=== PATIENT | male | born 1940 | race Caucasian/White ===

== ENCOUNTER 2017-03-21 16:01 | Inpatient (IN) | payer MEDICARE ==
[~2017-03-21] VITALS: Ht 193 cm; Wt 131.1 kg
[2017-03-21] MEDS ORDERED: ASPIRIN 325 MG TABLET PO ONE (16:30)
[2017-03-21] MEDS ORDERED: NITROGLYCERIN OINT 1 GM PACKET TP ONE ×2 (16:30→16:38)
[2017-03-21] MEDS ORDERED: FUROSEMIDE 20 MG/2 ML VIAL IVP ONE (16:30)
[2017-03-21] MEDS ORDERED: FUROSEMIDE 20 MG/2 ML VIAL ONE (16:39)
[2017-03-21] MEDS ORDERED: ASPIRIN 325 MG TABLET ONE (16:39)
[2017-03-21 16:43] LABS: BASOPHILS # (AUTO) 0.1 K/uL (0.0-8.0); BASOPHILS % (AUTO) 0.9 % (0.0-2.0); EOSINOPHILS # (AUTO) 0.1 K/uL (0.0-0.7); EOSINOPHILS % (AUTO) 0.6 % (0.0-7.0); HEMATOCRIT 46.1 % (36.7-47.1); HEMOGLOBIN 14.7 g/dL (12.5-16.3); LYMPHOCYTES # (AUTO) 2.9 K/uL (20.0-40.0); LYMPHOCYTES % (AUTO) 22.9 % (20.5-51.5); MEAN CORPUSCULAR HGB CONC 32 g/dL (32.5-36.3); MEAN CORPUSCULAR VOLUME 84.9 fL (73.0-96.2); MONOCYTES # (AUTO) 0.7 K/uL (2.0-10.0); MONOCYTES % (AUTO) 5.3 % (0.0-11.0); NEUTROPHILS # (AUTO) 8.8 K/uL (1.8-8.9); NEUTROPHILS % (AUTO) 70.3 % (38.5-71.5); PLATELET COUNT (AUTO) 169 K/uL (152-348); RED BLOOD CELL COUNT(AUTO) 5.43 MIL/uL (4.06-5.63); RED CELL DISTRIBUTION WIDTH 14.4 % (12.1-16.2); WHITE BLOOD COUNT (AUTO) 12.6 K/uL (3.6-10.2)
[2017-03-21 16:48] LABS: CALCIUM 9.2 mg/dL (8.5-10.1); POTASSIUM 4.7 mmol/L (3.5-5.1)
[2017-03-21 16:55] LABS: CREATININE 2.5 mg/dL (0.6-1.3)
[2017-03-21 17:01] LABS: ALBUMIN 3.5 g/dL (3.4-5.0); BILIRUBIN,DIRECT 0.6 mg/dL (0.0-0.2); BILIRUBIN,TOTAL 2.5 mg/dL (0.2-1.0); TOTAL PROTEIN, SERUM 6.5 g/dL (6.4-8.2)
[2017-03-21] MEDS ORDERED: METO-306 PO (17:07)
[2017-03-21] MEDS ORDERED: ALPR0.5T8 PO (17:07)
[2017-03-21] MEDS ORDERED: METO2.5T2 PO (17:07)
[2017-03-21] MEDS ORDERED: SPIR25TA4 PO (17:07)
[2017-03-21] MEDS ORDERED: TEMA15CA PO (17:07)
[2017-03-21] MEDS ORDERED: HYDR-4076 PO (17:07)
[2017-03-21] MEDS ORDERED: ZOLP10TA2 PO (17:07)
[2017-03-21] MEDS ORDERED: AMLO10TA2 PO (17:07)
[2017-03-21] MEDS ORDERED: QUIN40TA27 PO (17:07)
[2017-03-21] MEDS ORDERED: LEVOFLOXACIN 750 MG/D5W 150 ML PIGGYBACK IV ONE (17:15)
[2017-03-21] MEDS ORDERED: LEVOFLOXACIN 750MG/D5W 150 ML IV ONE (17:22)
--- NOTE | 2017-03-21 17:25 | NUR ---
[place] noted at this time.
--- NOTE | 2017-03-21 17:41 | NUR ---
Dr Zheng in to see pt.
--- NOTE | 2017-03-21 18:30 | NUR ---
U/S in progress at bedside.
--- NOTE | 2017-03-21 18:42 | NUR ---
Pt trans to tele, NAD noted.
[2017-03-21 19:00] VITALS: BP 141/101
--- NOTE | 2017-03-21 19:30 | NUR ---
NSG: PT received a/o x 4, no acute distress noted. lungs sound diminished to auscultate. on 2L O2 via nc saturating at 94%. tele, SR with pac's. has bilateral lower extremity +3 edema, legs, ankles, feet. incontinent/continent of urine. bed alarm on. call light within reach.
[2017-03-21] MEDS ORDERED: BUMETANIDE INJ 4 MG in IV DEXTROSE 5% 24 ML IV ONE (20:30)
[2017-03-21] MEDS ORDERED: DEXTROSE 50% 50 ML DISP.SYRIN IV PRN (20:30)
[2017-03-21] MEDS: BLOOD SUGAR DIAGNOSTIC 1 EACH STRIP VI SCH (22:30)
[2017-03-21] MEDS: ZOLPIDEM 5 MG TABLET PO PRN (22:32)
[2017-03-21] MEDS: INSULIN REGULAR, HUMAN 300 UNIT/3 ML VIAL SQ PRN (22:34)
[2017-03-21] MEDS ORDERED: ZOLPIDEM 5 MG TABLET ONE (22:37)
[2017-03-21] MEDS ORDERED: Z GUARD REMEDY PASTE 57 GM TUBE TOP PRN (23:30)
--- NOTE | 2017-03-22 | NUR ---
NSG: CURRENTLY RECEIVING BUMEX DRIP. CONT TO MONITOR URINE OUTPUT. TELE, SR
[2017-03-22 00:24] VITALS: BP 129/96
[2017-03-22] MEDS: ALPRAZOLAM 0.5 MG TABLET PO PRN (03:13)
[2017-03-22] MEDS ORDERED: ALPRAZOLAM 0.5 MG TABLET ONE (03:22)
[2017-03-22 04:00] VITALS: BP 133/90
--- NOTE | 2017-03-22 05:18 | NUR ---
NSG: ALL NEEDS ATTENDED. NO ACUTE DISTRESS NOTED. V/S STABLE. CONT TO MONITOR.
[2017-03-22] MEDS: BLOOD SUGAR DIAGNOSTIC 1 EACH STRIP VI SCH ×4 (06:51→21:53)
[2017-03-22 06:52] LABS: BASOPHILS # (AUTO) 0.1 K/uL (0.0-8.0); BASOPHILS % (AUTO) 0.5 % (0.0-2.0); EOSINOPHILS # (AUTO) 0.1 K/uL (0.0-0.7); HEMATOCRIT 45.3 % (36.7-47.1); HEMOGLOBIN 14.6 g/dL (12.5-16.3); LYMPHOCYTES # (AUTO) 2.9 K/uL (20.0-40.0); LYMPHOCYTES % (AUTO) 23.1 % (20.5-51.5); MEAN CORPUSCULAR HEMOGLOBIN 27.8 uug (23.8-33.4); MEAN CORPUSCULAR HGB CONC 32 g/dL (32.5-36.3); MONOCYTES % (AUTO) 7.9 % (0.0-11.0); NEUTROPHILS # (AUTO) 8.4 K/uL (1.8-8.9); NEUTROPHILS % (AUTO) 67.5 % (38.5-71.5); PLATELET COUNT (AUTO) 149 K/uL (152-348); RED BLOOD CELL COUNT(AUTO) 5.27 MIL/uL (4.06-5.63); RED CELL DISTRIBUTION WIDTH 14.8 % (12.1-16.2); WHITE BLOOD COUNT (AUTO) 12.5 K/uL (3.6-10.2)
[2017-03-22 07:25] LABS: THYROID STIMULATING HORMONE 1.33 mIU/mL (0.358-3.740)
[2017-03-22] MEDS ORDERED: METOLAZONE 2.5 MG TABLET PO PRN (08:15)
[2017-03-22] MEDS ORDERED: ALPRAZOLAM 0.5 MG TABLET PO PRN (08:15)
[2017-03-22] MEDS ORDERED: ZOLPIDEM 5 MG TABLET PO PRN (08:15)
--- NOTE | 2017-03-22 08:30 | NUR ---
AWAKE ORTX4 COOPERATE WELL SLIGHTLY SOB EASILY CONTINUE O2 AT 3L/M O2 SAT WAS 95% KEEP HOB UP ,NO PAIN ONFALL/ASPIRATION PRECAUTION CALL SAUCEDO IN REACH
[2017-03-22 08:31] LABS: ALBUMIN 3.5 g/dL (3.4-5.0); BILIRUBIN,TOTAL 1.8 mg/dL (0.2-1.0); CALCIUM 8.6 mg/dL (8.5-10.1); POTASSIUM 4.7 mmol/L (3.5-5.1); TOTAL PROTEIN, SERUM 6.7 g/dL (6.4-8.2)
[2017-03-22 08:58] LABS: CREATININE 2.5 mg/dL (0.6-1.3)
[2017-03-22] MEDS: hydrALAZINE HCL 25 MG TABLET PO SCH ×2 (08:58→16:28)
[2017-03-22] MEDS: SPIRONOLACTONE 25 MG TABLET PO SCH (08:58)
[2017-03-22] MEDS: AMLODIPINE 10 MG TABLET PO SCH (08:58)
[2017-03-22] MEDS ORDERED: LEVOFLOXACIN 500 MG/D5W 500 MG in PREMIXED 1 EACH IV SCH (09:00)
[2017-03-22] MEDS ORDERED: MISCELLANEOUS MED XX SCH (09:00)
[2017-03-22] MEDS ORDERED: METOPROLOL SUCCINATE XL 100 MG TAB.SR.24H PO SCH (09:00)
[2017-03-22] MEDS ORDERED: METOPROLOL SUCCINATE XL 50 MG TAB.SR.24H PO SCH (09:00)
[2017-03-22] MEDS ORDERED: BUMETANIDE INJ 4 MG in IV DEXTROSE 5% 24 ML IV ONE (09:15)
--- NOTE | 2017-03-22 10:15 | NUR ---
US OF KIDNEY AT BEDSIDE ELOINA PROCEDURE WELL AND OOB UP AMB WITH PT AND UP IN CHAIR DOING WELL DR PHELPS SEE PATIENT AND LAB RESULT THIS AM NEW ORDER IN CHART
[2017-03-22 11:17] VITALS: BP 123/83
[2017-03-22] MEDS ORDERED: METOLAZONE 5 MG TABLET PO ONE (11:45)
[2017-03-22] MEDS: INSULIN REGULAR, HUMAN 300 UNIT/3 ML VIAL SQ PRN (11:59)
[2017-03-22] MEDS: FUROSEMIDE 40 MG/4 ML VIAL IV SCH ×2 (12:02→21:40)
[2017-03-22] MEDS: ASPIRIN 81 MG TAB.CHEW PO SCH (12:02)
--- NOTE | 2017-03-22 12:30 | NUR ---
UP IN CHAIR AND EAT LUNCH WELL REFUSED DVT PUMP BECAUSE OF SWELLING ON BLE KEEP UP ON PILLOW
[2017-03-22 14:28] LABS: *BILIRUBIN,URIN NEGATIVE (NEGATIVE); *BLOOD, URINE NEGATIVE (NEGATIVE); *CLARITY,URINE CLEAR (CLEAR); *COLOR,URINE YELLOW (YELLOW); *KETONES,URINE NEGATIVE (NEGATIVE); *PROTEIN,URINE TRACE (NEGATIVE); *UROBILINOGEN,URINE 0.2 E.U./dl (NORMAL); LEUKOCYTE ESTERASE ,URINE NEGATIVE (NEGATIVE); NITRITE, URINE NEGATIVE (NEGATIVE); UGLUCOSE NEGATIVE (NEGATIVE)
[2017-03-22 14:48] LABS: BACTERIA,URINE FEW /HPF (NONE SEEN); RBC,URINE 0-3 /HPF (0-3); SQUAMOUS EPITHELIAL CELL,UR NONE SEEN /HPF (NONE SEEN); WBC,URINE 0-3 /HPF (0-3)
[2017-03-22 15:02] LABS: *CREATININE,URINE 39.6 mg/dL (30-125); *URINE TOTAL PROTEIN RANDOM 21.1 mg/dL (<150/24HR)
[2017-03-22 15:22] VITALS: BP 125/75
--- NOTE | 2017-03-22 18:00 | NUR ---
CONDITION STABLE NO ACUTE DISTRESS CONTINUE O2 AT 3L /MIN AND KEEP HOB UP AT ALL TIME SAFETY MEASURE PROVIDED CALL SAUCEDO WITHIN REACH
[2017-03-22 19:00] VITALS: BP 120/75
--- NOTE | 2017-03-22 19:10 | NUR ---
Received report from LYNDSEY Flores
--- NOTE | 2017-03-22 19:50 | NUR ---
Received patient sound asleep during initial rounds. No s/s of respiratory distress noted. No s/s of pain/discomforts. Safety measure and fall precaution maintained. Bumex drip ordered just completed without s/s of adverse reaction noted. BUE/BLE still swollen. Elevated extremities with pillows to reduce edema. Continue care as planned.
[2017-03-22] MEDS: ATORVASTATIN 40 MG TABLET PO SCH (21:40)
[2017-03-22] MEDS: ZOLPIDEM 5 MG TABLET PO PRN (23:42)
[2017-03-22 23:57] VITALS: BP 110/71
[2017-03-23 04:00] VITALS: BP 109/75
--- NOTE | 2017-03-23 04:57 | NUR ---
SVT reported by MT. BP 109/75, asymptomatic. Continue to monitor.
[2017-03-23] MEDS: BLOOD SUGAR DIAGNOSTIC 1 EACH STRIP VI SCH ×4 (05:37→20:29)
--- NOTE | 2017-03-23 06:35 | NUR ---
Voided per diaper a lot. Good mariah care rendered. All needs attended and met. No complaint presented all night. Slept well. Safety measures and fall precaution maintained. Continue care as planned.
[2017-03-23 06:56] LABS: EOSINOPHILS # (AUTO) 0.3 K/uL (0.0-0.7); EOSINOPHILS % (AUTO) 2.5 % (0.0-7.0); HEMATOCRIT 44.8 % (40-50); LYMPHOCYTES # (AUTO) 2.8 K/uL (20.0-40.0); LYMPHOCYTES % (AUTO) 21.4 % (20.5-51.5); MEAN CORPUSCULAR HEMOGLOBIN 28.4 UUG (27.0-31.0); MEAN CORPUSCULAR HGB CONC 34 g/dL (32.0-37.0); MEAN CORPUSCULAR VOLUME 84.8 FL (82.0-92.0); MONOCYTES % (AUTO) 7.8 % (0.0-11.0); NEUTROPHILS # (AUTO) 9.2 K/uL (1.8-8.9); NEUTROPHILS % (AUTO) 68.3 % (38.5-71.5); PLATELET COUNT (AUTO) 160 K/UL (150-450); RED BLOOD CELL COUNT(AUTO) 5.27 MIL/UL (4.7-6.1); RED CELL DISTRIBUTION WIDTH 14.6 % (11.5-14.5); WHITE BLOOD COUNT (AUTO) 13.3 K/UL (4.0-11.2)
--- NOTE | 2017-03-23 06:56 | NUR ---
Report given to AM nurse.
[2017-03-23 07:05] LABS: ALBUMIN 3.5 g/dL (3.4-5.0); CALCIUM 8.9 mg/dL (8.5-10.1); CREATININE 2.5 mg/dL (0.6-1.3); MAGNESIUM 2.2 mg/dL (1.8-2.4); PHOSPHOROUS 6.4 mg/dL (2.5-4.9); POTASSIUM 3.5 mmol/L (3.5-5.1); TOTAL PROTEIN, SERUM 6.6 g/dL (6.4-8.2)
--- NOTE | 2017-03-23 08:00 | NUR ---
RECEIVED PATIENT FROM PRIOR SHIFT, PATIENT ALERT, AWAKE, ORIENTED , NO S/S OF DISTRESS, DENIED CHEST PAIN SINUS RHYTHM BBB, RESPIRATIONS EVEN AND UNLABORED. SAFETY MAINTAINED.
[2017-03-23] MEDS: SPIRONOLACTONE 25 MG TABLET PO SCH (08:42)
[2017-03-23] MEDS: ASPIRIN 81 MG TAB.CHEW PO SCH (08:43)
[2017-03-23] MEDS: AMLODIPINE 10 MG TABLET PO SCH (08:43)
[2017-03-23] MEDS: hydrALAZINE HCL 25 MG TABLET PO SCH ×2 (08:43→18:07)
[2017-03-23] MEDS ORDERED: BUMETANIDE INJ 8 MG in IV DEXTROSE 5% 48 ML IV ONE (08:45)
[2017-03-23] MEDS ORDERED: FUROSEMIDE 40 MG/4 ML VIAL IV SCH (09:00)
[2017-03-23 12:08] VITALS: BP 99/54
[2017-03-23] MEDS ORDERED: POTASSIUM CHLORIDE 20 MEQ POWDER PACKET PO ONE (12:15)
[2017-03-23] MEDS: METOPROLOL SUCCINATE XL 25 MG TAB.SR.24H PO SCH (12:30)
[2017-03-23 15:23] VITALS: BP 106/67
[2017-03-23 15:25] LABS: ABG BASE EXCESS 5.3 mmol/L; ABG HCO3 31.4 mmol/L; ABG PCO2 51.2 mmHg (35.0-45.0); ABG PH 7.406 (7.350-7.450); ABG PO2 97.3 mmHg (75.0-100.0); ABG SITE RIGHT RADIAL; ABG TOTAL HEMOGLOBIN 15.4 G/dL (13.5-18.0); COHb 1.6 % (0.5-1.5); MetHb 0.4 % (0.0-1.5); O2Hb 95.9 % (94.0-97.0); VENT MODE Nasal Cannula
--- NOTE | 2017-03-23 19:10 | NUR ---
Received report from LYNDSEY Kent
--- NOTE | 2017-03-23 19:17 | NUR ---
END OF SHIFT NOTE: PATIENT IN NO ACUTE DISTRESS THROUGHOUT SHIFT. VITAL SIGNS STABLE, CONTINUOUS SINUS RHYTHM ON TELE. PATIENT UP IN CHAIR TOLERATED. CONTINENT OF BLADDER. NEEDS MET BY STAFF.
--- NOTE | 2017-03-23 19:30 | NUR ---
Received in bed, awake, appears comfortable. Denies any pain or discomforts at this time. HOB elevated with contineous O2 at 3L saturating 95 % at this time. No s/s of respiratory distress. BLE elevated with pillow to reduce edema. Bumex drip contineous as ordered. Continue care as planned.
[2017-03-23 20:00] VITALS: BP 111/69
[2017-03-23] MEDS: ATORVASTATIN 40 MG TABLET PO SCH (20:26)
[2017-03-23] MEDS ORDERED: LEVOFLOXACIN 750MG/D5W 0 ML IV ONE (20:32)
[2017-03-23] MEDS ORDERED: LEVOFLOXACIN 750MG/D5W 750 MG in PREMIXED 1 EACH IV SCH (21:00)
[2017-03-23] MEDS: ZOLPIDEM 5 MG TABLET PO PRN (23:14)
--- NOTE | 2017-03-23 23:23 | NUR ---
Requested sleeping pills, given. Will monitor.
[2017-03-24] VITALS: BP 109/63
--- NOTE | 2017-03-24 00:05 | NUR ---
Sleeping soundly during rounds.
[2017-03-24] MEDS: ALPRAZOLAM 0.5 MG TABLET PO PRN (03:21)
[2017-03-24 04:00] VITALS: BP 121/78
--- NOTE | 2017-03-24 05:04 | NUR ---
VSS. Slept at long interval. No significant event reported all night. All needs attended and met. No complaint presented throughout the night. Continue care as planned.
[2017-03-24] MEDS: BLOOD SUGAR DIAGNOSTIC 1 EACH STRIP VI SCH ×2 (05:48→12:49)
--- NOTE | 2017-03-24 06:56 | NUR ---
Report given to LYNDSEY Mcqueen
[2017-03-24 07:05] LABS: ALBUMIN 3.4 g/dL (3.4-5.0); BILIRUBIN,TOTAL 2.2 mg/dL (0.2-1.0); CALCIUM 8.6 mg/dL (8.5-10.1); PHOSPHOROUS 5.9 mg/dL (2.5-4.9); POTASSIUM 3.1 mmol/L (3.5-5.1); TOTAL PROTEIN, SERUM 6.5 g/dL (6.4-8.2)
[2017-03-24 07:11] LABS: BASOPHILS % (AUTO) 0.1 % (0.0-2.0); EOSINOPHILS # (AUTO) 0.4 K/uL (0.0-0.7); EOSINOPHILS % (AUTO) 2.9 % (0.0-7.0); HEMATOCRIT 46.7 % (40-50); HEMOGLOBIN 15.4 G/DL (14.0-18.0); LYMPHOCYTES # (AUTO) 2.7 K/uL (20.0-40.0); LYMPHOCYTES % (AUTO) 22.2 % (20.5-51.5); MEAN CORPUSCULAR HGB CONC 33 g/dL (32.0-37.0); MEAN CORPUSCULAR VOLUME 84.7 FL (82.0-92.0); MONOCYTES # (AUTO) 1.1 K/uL (2.0-10.0); MONOCYTES % (AUTO) 8.7 % (0.0-11.0); NEUTROPHILS # (AUTO) 8.1 K/uL (1.8-8.9); NEUTROPHILS % (AUTO) 66.1 % (38.5-71.5); PLATELET COUNT (AUTO) 138 K/UL (150-450); RED BLOOD CELL COUNT(AUTO) 5.51 MIL/UL (4.7-6.1); RED CELL DISTRIBUTION WIDTH 14.4 % (11.5-14.5); WHITE BLOOD COUNT (AUTO) 12.3 K/UL (4.0-11.2)
[2017-03-24 07:36] LABS: CREATININE 2.5 mg/dL (0.6-1.3)
[2017-03-24] MEDS ORDERED: Isosorbide Dinitrate PO (07:54)
[2017-03-24] MEDS ORDERED: HYDR-894 PO (07:54)
[2017-03-24] MEDS ORDERED: ATOR40TA PO (07:54)
[2017-03-24] MEDS ORDERED: Metoprolol Succinate PO (07:54)
[2017-03-24] MEDS ORDERED: BUME1TAB13 PO (07:54)
[2017-03-24] MEDS ORDERED: ASPI81TA31 PO (07:54)
--- NOTE | 2017-03-24 08:00 | NUR ---
awake alert and oriented, denies of pain, on 3l/nc , denies of shortness of breath, tele SR 80's, explained plan of care- verbalized understanding, call lite within reach, safety measures maintained.
--- NOTE | 2017-03-24 08:30 | NUR ---
seen by Dr Zheng- to go home today
[2017-03-24] MEDS: ASPIRIN 81 MG TAB.CHEW PO SCH (08:41)
[2017-03-24] MEDS: METOPROLOL SUCCINATE XL 25 MG TAB.SR.24H PO SCH (08:42)
[2017-03-24] MEDS ORDERED: BUMETANIDE 1 MG TABLET PO SCH (09:00)
[2017-03-24] MEDS ORDERED: hydrALAZINE HCL 25 MG TABLET PO SCH (09:00)
--- NOTE | 2017-03-24 11:30 | NUR ---
seen by DR schaefer- on room air- sat at 93%- Dr Schaefer informed
[2017-03-24 11:55] LABS: A/G RATIO 1.5 (0.7-1.7); ALBUMIN 3.6 g/dL (2.9-4.4); ALPHA-1-GLOBULIN 0.2 g/dL (0.0-0.4); ALPHA-2-GLOBULIN 0.7 g/dL (0.4-1.0); BETA GLOBULIN 0.9 g/dL (0.7-1.3); GAMMA GLOBULIN 0.7 g/dL (0.4-1.8); GLOBULIN, TOTAL 2.4 g/dL (2.2-3.9); M-SPIKE Not Observed g/dL (Not Observed); PTH, INTACT 148 pg/mL (15-65)
--- NOTE | 2017-03-24 12:00 | NUR ---
denies of pain, voiding per urinal at times misses it, Both groin kept clean and dry- z guard applied.
[2017-03-24 12:04] VITALS: BP 115/73
[2017-03-24] MEDS ORDERED: PNEUMOCOCCAL 23-VAL P-SAC VAC 0.5 ML VIAL IM ONE (12:45)
[2017-03-24] MEDS ORDERED: ISOSORBIDE DINITRATE 10 MG TABLET PO SCH (14:00)
[2017-03-24] MEDS ORDERED: POTASSIUM CHLORIDE 10 MEQ CAPSULE.SA PO ONE (14:00)
[2017-03-24 14:25] VITALS: BP 115/69
--- NOTE | 2017-03-24 15:00 | NUR ---
discharge instructions given, pharmacist here for medications instructions- verbalized understanding, saline lock removed- no swelling/redness noted on site- states driving himself home
--- NOTE | 2017-03-24 15:30 | NUR ---
escorted to car per w/c in stable condition- all belongings with him
== END 2017-03-24 15:32 | disposition home or self-care (01) | DRG 177 ==
LOC: ER 16:13 → TELE 18:30
PROVIDERS: ADMIT Internal Medicine; ATTEND Internal Medicine
DX: J15.6 Pneumonia due to other Gram-negative bacteria (principal); I21.4 Non-ST elevation (NSTEMI) myocardial infarction; I50.43 Acute on chronic combined systolic (congestive) and diastolic (congestive) heart failure; N17.0 Acute kidney failure with tubular necrosis; J96.90 Respiratory failure, unspecified, unspecified whether with hypoxia or hypercapnia; I13.0 Hypertensive heart and chronic kidney disease with heart failure and stage 1 through stage 4 chronic kidney disease, or unspecified chronic kidney disease; J98.11 Atelectasis; E87.0 Hyperosmolality and hypernatremia; J90 Pleural effusion, not elsewhere classified; I47.1 Supraventricular tachycardia; I42.9 Cardiomyopathy, unspecified; N18.3 Chronic kidney disease, stage 3 (moderate); F41.9 Anxiety disorder, unspecified; F32.9 Major depressive disorder, single episode, unspecified; E11.22 Type 2 diabetes mellitus with diabetic chronic kidney disease; E66.9 Obesity, unspecified; N40.0 Benign prostatic hyperplasia without lower urinary tract symptoms; Z88.0 Allergy status to penicillin; G47.33 Obstructive sleep apnea (adult) (pediatric); F39 Unspecified mood [affective] disorder; F60.9 Personality disorder, unspecified
CPT/HCPCS: 36415; 36600; 70030-TC; 71010; 76770; 83735; 83970; 84100; 84155; 84156; 84165; 84300; 84443; 85025; 85730; 87040; 90732; 93005; 93307; 93880; 97001; 97003; 97110; 97116; 97530; J1815; J1940; J1956; J3490; J7040; J7060

== ENCOUNTER 2017-09-27 15:24 | Inpatient (IN) | payer MEDICARE ==
[~2017-09-27] VITALS: Ht 193 cm; Wt 123.0 kg
[~2017-09-27 15:24] MED LIST: ALPR0.5T8 PO; ASPI81TA31 PO; ATOR40TA PO; BUME1TAB13 PO; HYDR25TA86 PO; Isosorbide Dinitrate PO; METO2.5T2 PO; Metoprolol Succinate PO; ZOLP10TA2 PO
--- NOTE | 2017-09-27 15:35 | NUR ---
PATIENT IS AWAKE, ALERT, ORIENTED X4. DENIES PAIN OR ANY UUSUAL SYMPTOMS. PLACED ON MONITOR. HR 136. DENIES CHEST PAIN OR SOB. 12 LEAD EKG DONE.
--- NOTE | 2017-09-27 15:45 | NUR ---
PT'S FACILITY DID NOT SEND PT'S MEDICATION LIST. FACILITY WAS CALLED BY LYNDSEY MENDENHALL TO FAX PT'S MEDICATION LIST TO [facility] ([place]).
[2017-09-27 16:05] LABS: BASOPHILS # (AUTO) 0.1 K/uL (0.0-8.0); BASOPHILS % (AUTO) 0.6 % (0.0-2.0); EOSINOPHILS % (AUTO) 0.2 % (0.0-7.0); HEMATOCRIT 43.2 % (40-50); HEMOGLOBIN 14.1 G/DL (14.0-18.0); LYMPHOCYTES # (AUTO) 3.6 K/UL (0.8-4.8); LYMPHOCYTES % (AUTO) 16.2 % (20.5-51.5); MEAN CORPUSCULAR HEMOGLOBIN 27.4 UUG (27.0-31.0); MEAN CORPUSCULAR HGB CONC 33 g/dL (32.0-37.0); MEAN CORPUSCULAR VOLUME 84.1 FL (82.0-92.0); MONOCYTES # (AUTO) 0.9 K/UL (0.1-1.30); NEUTROPHILS # (AUTO) 17.6 K/UL (1.8-8.9); PLATELET COUNT (AUTO) 275 K/UL (150-450); RED BLOOD CELL COUNT(AUTO) 5.14 MIL/UL (4.7-6.1); WHITE BLOOD COUNT (AUTO) 22.2 K/UL (4.0-11.2)
[2017-09-27 16:07] LABS: CARBON DIOXIDE 21 mmol/L (21-32); CHLORIDE 101 mmol/L (98-107); CREATININE 2.2 mg/dL (0.6-1.3); GLUCOSE 160 mg/dL (74-106); POTASSIUM 3.8 mmol/L (3.5-5.1); UREA NITROGEN, BLOOD 78 mg/dL (7-18)
[2017-09-27 16:18] LABS: ALANINE AMINOTRANSFERASE 177 U/L (16-63); ALKALINE PHOSPHATASE 129 U/L (50-136); ASPARTATE AMINOTRANSFERASE 164 U/L (15-37); BILIRUBIN,DIRECT 0.4 mg/dL (0.0-0.2); BILIRUBIN,TOTAL 1.2 mg/dL (0.2-1.0); TOTAL PROTEIN, SERUM 7.4 g/dL (6.4-8.2)
[2017-09-27] MEDS ORDERED: TEMA30CA5 PO (16:21)
[2017-09-27] MEDS ORDERED: AMLO10TA2 PO (16:21)
[2017-09-27] MEDS ORDERED: CYAN10009 PO (16:21)
[2017-09-27] MEDS ORDERED: MULT1TAB11 PO (16:21)
[2017-09-27] MEDS ORDERED: RANI150T12 PO (16:21)
[2017-09-27] MEDS ORDERED: ISOS20TA8 PO (16:21)
[2017-09-27] MEDS ORDERED: ERGO500014 PO (16:21)
[2017-09-27] MEDS ORDERED: CLON0.1T PO (16:21)
[2017-09-27] MEDS ORDERED: HYDR-4076 PO (16:21)
[2017-09-27 16:25] LABS: BAND % (MANUAL) 3 % (0-10); LYMPHOCYTES % (MANUAL) 17 % (20-40); MONOCYTES % (MANUAL) 4 % (2-10); NEUTROPHILS % (MANUAL) 76 % (42-75)
--- NOTE | 2017-09-27 17:00 | NUR ---
REPORT GIVEN TO GABRIEL SOLORIO IN TELE DEPT
[2017-09-27 17:22] VITALS: BP 100/76
--- NOTE | 2017-09-27 17:39 | NUR ---
77 YEAR OLD MALE ADMITTED TO ROOM 215 FOR ARF AND CHF VIA GURNEY IN STABLE CONDITION.V/S ARE STABLE.ORIENT THE PT TO ROOM AND SURROUNDINGS.
--- NOTE | 2017-09-27 17:40 | NUR ---
CALLED FOR ADMISSION ORDERS.
[2017-09-27] MEDS ORDERED: ACETAMINOPHEN 325 MG TABLET PO PRN (18:00)
[2017-09-27] MEDS ORDERED: ONDANSETRON 4 MG/2 ML VIAL IV PRN (18:00)
[2017-09-27] MEDS ORDERED: CLONIDINE HCL 0.1 MG TABLET PO PRN (18:30)
[2017-09-27 20:00] VITALS: BP 144/81
[2017-09-27] MEDS: hydrALAZINE HCL 25 MG TABLET PO SCH (20:02)
--- NOTE | 2017-09-27 20:45 | NUR ---
RECEIVED PATIENT AWAKE IN BED, ALERT AND ORIENTED X3. ON NC 2L O2 SATS AT 97%. A. FIB ON TELE. VITAL SIGNS ARE STABLE. NOTED REDNESS ON SCARAL AND SCROTAL AREA. PHOTOS PLACED IN CHART. STARTED DVT PUMPS. INCONTINENT CARE RENDERED. CALL LIGHT WITHIN REACH.
[2017-09-27] MEDS: ISOSORBIDE DINITRATE 20 MG TABLET PO SCH (21:46)
[2017-09-28 00:15] VITALS: BP 120/69
[2017-09-28] MEDS: TEMAZEPAM 30 MG CAPSULE PO PRN (00:22)
--- NOTE | 2017-09-28 01:11 | NUR ---
PATIENT EXPERIENCE HICCUPS WHEN AWAKE. RECHECKED VS, STABLE. NO SOB AND NOT IN DISTRESS. GIVEN PRN SLEEPING PILLS PER PT'S REQUEST. OTHERWISE PATIENT IS SLEEPING AT THIS TIME.
[2017-09-28 04:00] VITALS: BP 115/81
[2017-09-28] MEDS: ISOSORBIDE DINITRATE 20 MG TABLET PO SCH ×3 (05:13→22:45)
--- NOTE | 2017-09-28 06:04 | NUR ---
SLEPT INTERMITTENTLY THRU THE NIGHT. INCONTINENT CARE DONE. CALL LIGHT WITHIN REACH.
[2017-09-28 06:40] LABS: BASOPHILS % (AUTO) 0.1 % (0.0-2.0); EOSINOPHILS # (AUTO) 0.1 K/uL (0.0-0.7); HEMOGLOBIN 12.4 g/dL (12.5-16.3); MONOCYTES # (AUTO) 1.9 K/uL (2.0-10.0); NEUTROPHILS # (AUTO) 16.1 K/uL (1.8-8.9)
[2017-09-28 07:05] LABS: EOSINOPHILS % (AUTO) 0.4 % (0.0-7.0); HEMATOCRIT 37.4 % (36.7-47.1); LYMPHOCYTES % (AUTO) 18.2 % (20.5-51.5); MEAN CORPUSCULAR HEMOGLOBIN 27.8 uug (23.8-33.4); MEAN CORPUSCULAR HGB CONC 33 g/dL (32.5-36.3); MEAN CORPUSCULAR VOLUME 83.3 fL (73.0-96.2); MONOCYTES % (AUTO) 8.6 % (0.0-11.0); NEUTROPHILS % (AUTO) 72.7 % (38.5-71.5); RED BLOOD CELL COUNT(AUTO) 4.48 MIL/uL (4.06-5.63); WHITE BLOOD COUNT (AUTO) 22.1 K/uL (3.6-10.2)
[2017-09-28 07:08] LABS: PLATELET COUNT (AUTO) 255 K/uL (152-348)
[2017-09-28 07:16] LABS: CARBON DIOXIDE 22 mmol/L (21-32); CHLORIDE 102 mmol/L (98-107); GLUCOSE 122 mg/dL (74-106); MAGNESIUM 2.5 mg/dL (1.8-2.4); PHOSPHOROUS 3.8 mg/dL (2.5-4.9); POTASSIUM 3.5 mmol/L (3.5-5.1); UREA NITROGEN, BLOOD 75 mg/dL (7-18)
--- NOTE | 2017-09-28 07:30 | NUR ---
RECEIVED PATIENT AWAKE IN BED, ALERT AND ORIENTED X3. ON NC 2L O2 SATS AT 97%. A. FIB ON TELE. VITAL SIGNS ARE STABLE. NOTED REDNESS ON Sacral AND SCROTAL AREA. . STARTED DVT PUMPS. INCONTINENT CARE RENDERED. CALL LIGHT WITHIN REACH.
[2017-09-28] MEDS: FAMOTIDINE 20 MG TABLET PO SCH (08:03)
[2017-09-28] MEDS: MULTIVIT, IRON, MIN NO. 8, FA TABLET PO SCH (08:03)
[2017-09-28] MEDS: CYANOCOBALAMIN 1,000 MCG TABLET PO SCH (08:03)
[2017-09-28] MEDS: Z GUARD REMEDY PASTE 57 GM TUBE TOP SCH ×2 (08:04→20:26)
[2017-09-28] MEDS: hydrALAZINE HCL 25 MG TABLET PO SCH ×2 (08:04→20:27)
[2017-09-28] MEDS ORDERED: AMLODIPINE 10 MG TABLET PO SCH (09:00)
[2017-09-28] MEDS ORDERED: HOME MED MISCELLANEOUS PO SCH (09:00)
[2017-09-28 09:54] LABS: BAND % (MANUAL) 4 % (0-10); LYMPHOCYTES % (MANUAL) 21 % (20-40); MONOCYTES % (MANUAL) 10 % (2-10); NEUTROPHILS % (MANUAL) 65 % (42-75)
[2017-09-28 11:03] VITALS: BP 113/63
[2017-09-28] MEDS: METOPROLOL SUCCINATE XL 50 MG TAB.SR.24H PO SCH ×2 (11:30→12:26)
[2017-09-28 11:45] LABS: BILIRUBIN,DIRECT 0.4 mg/dL (0.0-0.2); BILIRUBIN,TOTAL 1.2 mg/dL (0.2-1.0); TOTAL PROTEIN, SERUM 6.6 g/dL (6.4-8.2)
[2017-09-28] MEDS: BUMETANIDE 1 MG TABLET PO SCH (12:07)
[2017-09-28 14:40] LABS: *BILIRUBIN,URIN NEGATIVE (NEGATIVE); *BLOOD, URINE NEGATIVE (NEGATIVE); *COLOR,URINE YELLOW (YELLOW); *KETONES,URINE NEGATIVE (NEGATIVE); *PROTEIN,URINE TRACE (NEGATIVE); *UROBILINOGEN,URINE 0.2 E.U./dl (NORMAL); LEUKOCYTE ESTERASE ,URINE NEGATIVE (NEGATIVE); NITRITE, URINE NEGATIVE (NEGATIVE); PH,URINE 5.5 (5.0-8.0); UGLUCOSE NEGATIVE (NEGATIVE)
[2017-09-28 14:44] LABS: *CREATININE,URINE 68.4 mg/dL (30-125); *URINE TOTAL PROTEIN RANDOM 50.2 mg/dL (<150/24HR)
[2017-09-28 14:55] LABS: *CLARITY,URINE HAZY (CLEAR)
[2017-09-28 14:56] LABS: MUCUS,URINE MODERATE /LPF (0-FEW); SQUAMOUS EPITHELIAL CELL,UR FEW /HPF (NONE SEEN); URINE AMORPHOUS URATE MODERATE /HPF; WBC,URINE 0-3 /HPF (0-3)
[2017-09-28 15:24] VITALS: BP 111/74
[2017-09-28 20:00] VITALS: BP 90/68
[2017-09-28] MEDS ORDERED: LEVOFLOXACIN 500 MG/D5W 100 ML IV SCH (20:30)
--- NOTE | 2017-09-28 21:00 | NUR ---
PATIENT COMFORTABLE IN BED. ALERT AND ORIENTED X4. PATIENT CONSENT FOR NM HIDA GB VASC SCAN TOMORROW. VITAL SIGNS ARE STABLE. INCONTINENT CARE DONE. CALL LIGHT WITHIN REACH.
[2017-09-28] MEDS ORDERED: LEVOFLOXACIN 500 MG/D5W 100 ML ONE (21:51)
[2017-09-28] MEDS ORDERED: LEVOFLOXACIN 500 MG/D5W 500 MG in PREMIXED 1 EACH IV ONE (22:00)
[2017-09-28 22:41] VITALS: BP 109/64
[2017-09-28] MEDS: METRONIDAZOLE 500 MG/NS 100ML 500 MG in PREMIXED 1 EACH IV SCH (22:45)
[2017-09-29] VITALS: BP 124/74
--- NOTE | 2017-09-29 00:27 | NUR ---
INSTRUCTED NPO AFTER MIDNIGHT TONIGHT.
[2017-09-29 04:00] VITALS: BP 120/70
[2017-09-29] MEDS: ISOSORBIDE DINITRATE 20 MG TABLET PO SCH ×3 (05:28→22:06)
[2017-09-29] MEDS: METRONIDAZOLE 500 MG/NS 100ML 500 MG in PREMIXED 1 EACH IV SCH ×3 (05:28→21:43)
[2017-09-29 06:24] LABS: ALANINE AMINOTRANSFERASE 132 U/L (16-63); ALKALINE PHOSPHATASE 111 U/L (50-136); ASPARTATE AMINOTRANSFERASE 84 U/L (15-37); BILIRUBIN,DIRECT 0.4 mg/dL (0.0-0.2); BILIRUBIN,TOTAL 1.2 mg/dL (0.2-1.0); CARBON DIOXIDE 25 mmol/L (21-32); CHLORIDE 103 mmol/L (98-107); CREATINE KINASE, TOTAL 20 U/L (39-308); CREATININE 1.7 mg/dL (0.6-1.3); GLUCOSE 105 mg/dL (74-106); MAGNESIUM 2.2 mg/dL (1.8-2.4); PHOSPHOROUS 3.8 mg/dL (2.5-4.9); POTASSIUM 3.4 mmol/L (3.5-5.1); TOTAL PROTEIN, SERUM 6.6 g/dL (6.4-8.2); UREA NITROGEN, BLOOD 58 mg/dL (7-18)
--- NOTE | 2017-09-29 06:30 | NUR ---
MAINTAINED NPO. OTHERWISE NOT IN DISTRESS, VSS. INCONTINENT CARE DONE. CALL LIGHT WITHIN REACH.
[2017-09-29 06:48] LABS: BASOPHILS % (AUTO) 0.1 % (0.0-2.0); EOSINOPHILS # (AUTO) 0.1 K/uL (0.0-0.7); EOSINOPHILS % (AUTO) 0.5 % (0.0-7.0); HEMOGLOBIN 12.5 G/DL (14.0-18.0); LYMPHOCYTES # (AUTO) 3.2 K/UL (0.8-4.8); LYMPHOCYTES % (AUTO) 16.6 % (20.5-51.5); MEAN CORPUSCULAR HEMOGLOBIN 28.4 UUG (27.0-31.0); MEAN CORPUSCULAR HGB CONC 34 g/dL (32.0-37.0); MEAN CORPUSCULAR VOLUME 83.9 FL (82.0-92.0); MONOCYTES # (AUTO) 1.5 K/UL (0.1-1.30); MONOCYTES % (AUTO) 7.7 % (0.0-11.0); NEUTROPHILS # (AUTO) 14.2 K/UL (1.8-8.9); NEUTROPHILS % (AUTO) 75.1 % (38.5-71.5); PLATELET COUNT (AUTO) 275 K/UL (150-450); RED BLOOD CELL COUNT(AUTO) 4.41 MIL/UL (4.7-6.1)
--- NOTE | 2017-09-29 08:23 | NUR ---
to radiology dept for HIDA scan Addendum: 09/29/17 at 0823 by KEN IGLESIAS RN Amended: Links added.
--- NOTE | 2017-09-29 08:30 | NUR ---
seen by dr gallegos. no new orders received Addendum: 09/29/17 at 0946 by KEN IGLESIAS RN Amended: Links added.
[2017-09-29 10:29] LABS: BAND % (MANUAL) 2 % (0-10); EOSINOPHILS % (MANUAL) 1 % (0-8); LYMPHOCYTES % (MANUAL) 12 % (20-40); MONOCYTES % (MANUAL) 6 % (2-10); NEUTROPHILS % (MANUAL) 79 % (42-75)
[2017-09-29 10:47] VITALS: BP 137/64
--- NOTE | 2017-09-29 12:00 | NUR ---
seen by dr velasquez. orders received. informed of ef35% and need for TERRELL inhibitors and also anticoagulant. please see progress report. Addendum: 09/29/17 at 1559 by KEN IGLESIAS RN Amended: Links added.
[2017-09-29] MEDS: MULTIVIT, IRON, MIN NO. 8, FA TABLET PO SCH (12:23)
[2017-09-29] MEDS: BUMETANIDE 1 MG TABLET PO SCH (12:23)
[2017-09-29] MEDS: hydrALAZINE HCL 25 MG TABLET PO SCH ×2 (12:26→22:06)
[2017-09-29] MEDS: METOPROLOL SUCCINATE XL 50 MG TAB.SR.24H PO SCH (12:27)
[2017-09-29] MEDS: CYANOCOBALAMIN 1,000 MCG TABLET PO SCH (12:27)
[2017-09-29] MEDS: FAMOTIDINE 20 MG TABLET PO SCH (12:27)
[2017-09-29] MEDS: Z GUARD REMEDY PASTE 57 GM TUBE TOP SCH ×2 (12:30→22:00)
--- NOTE | 2017-09-29 12:32 | NUR ---
BACK TO RADIOLOGY DEPT to complete HIDA scan Addendum: 09/29/17 at 1232 by KEN IGLESIAS RN Amended: Links added.
--- NOTE | 2017-09-29 12:54 | NUR ---
back to room. Addendum: 09/29/17 at 1255 by KEN IGLESIAS RN Amended: Links added.
[2017-09-29] MEDS ORDERED: POTASSIUM CHLORIDE 10 MEQ CAPSULE.SA PO ONE (14:00)
--- NOTE | 2017-09-29 14:30 | NUR ---
kcl 20meq given for k3.4.. call to dr gallegos office re result of HIDA scan Addendum: 09/29/17 at 1431 by KEN IGLESIAS RN Amended: Links added.
[2017-09-29 15:13] VITALS: BP 127/55
--- NOTE | 2017-09-29 15:56 | NUR ---
seen by LANCE Sands. orders received. will start on clear liquids Addendum: 09/29/17 at 1556 by KEN IGLESIAS RN Amended: Links added. Addendum: 09/29/17 at 1559 by KEN IGLESIAS RN Amended: Links added.
[2017-09-29 20:00] VITALS: BP 127/57
--- NOTE | 2017-09-29 20:00 | NUR ---
NSG: PT RECEIVED A/O X 4, NO ACUTE DISTRESS NOTED. DENIES DISCOMFORT. ON 2L O2 VIA NC SATURATING AT 95%. LUNG SOUNDS DIMINISHED TO AUSCULTATE. TELE, SR. ON BED REST. CALL LIGHT WITHIN REACH. BED ALARM ON.
[2017-09-29] MEDS: LEVOFLOXACIN 250MG /D5W 250 MG in PREMIXED 1 EACH IV SCH (22:51)
[2017-09-29] MEDS: TEMAZEPAM 30 MG CAPSULE PO PRN (23:31)
[2017-09-30] VITALS: BP 95/58
[2017-09-30 04:00] VITALS: BP 140/74
[2017-09-30] MEDS: METRONIDAZOLE 500 MG/NS 100ML 500 MG in PREMIXED 1 EACH IV SCH ×3 (05:36→21:59)
[2017-09-30] MEDS: ISOSORBIDE DINITRATE 20 MG TABLET PO SCH ×3 (05:36→22:00)
--- NOTE | 2017-09-30 06:00 | NUR ---
NSG: ALL NEEDS ATTENDED. KEPT CLEAN AND DRY. REPOSITIONED.
--- NOTE | 2017-09-30 08:00 | NUR ---
awake and oriented, denies of abdominal pain, no n/v, tolerating clear liquids, on 2l/nc 02, no shortness of breath noted, tele afib/flutter 90's, explained plan of care- verbalized understanding, safety measures maintained- call light within reach
[2017-09-30] MEDS: FAMOTIDINE 20 MG TABLET PO SCH (08:26)
[2017-09-30] MEDS: CYANOCOBALAMIN 1,000 MCG TABLET PO SCH (08:26)
[2017-09-30] MEDS: MULTIVIT, IRON, MIN NO. 8, FA TABLET PO SCH (08:26)
[2017-09-30] MEDS: METOPROLOL SUCCINATE XL 50 MG TAB.SR.24H PO SCH (08:26)
[2017-09-30] MEDS: hydrALAZINE HCL 25 MG TABLET PO SCH ×2 (08:27→21:00)
[2017-09-30] MEDS: BUMETANIDE 1 MG TABLET PO SCH (08:28)
[2017-09-30] MEDS: Z GUARD REMEDY PASTE 57 GM TUBE TOP SCH ×2 (08:32→21:10)
[2017-09-30] MEDS ORDERED: ERGOCALCIFEROL 50,000 UNIT CAPSULE PO SCH (09:00)
[2017-09-30 10:07] LABS: HEPATITIS B SURFACE AB Non Reactive (.); HEPATITIS B SURFACE AG Negative (Negative)
--- NOTE | 2017-09-30 10:30 | NUR ---
seen by Dr Tejada
--- NOTE | 2017-09-30 11:00 | NUR ---
seen by Dr Storm- will have consult with Dr Lizzie Espinal MD contacted by Dr Storm
[2017-09-30 11:43] VITALS: BP 93/55
[2017-09-30 15:45] VITALS: BP 103/85
--- NOTE | 2017-09-30 18:32 | NUR ---
tolerating clear liquids, denies of abdominal pain, no n/v, all needs attended and met, repositioned q 2h with heels off loaded with pillows, no redness noted on heels, reddened areas on sacrum and scrotal areas applied with z guard, kept clean and dry at all times. call light within reach, tele afib/flutter in the 's
--- NOTE | 2017-09-30 20:00 | NUR ---
PATIENT AWAKE, ALERT,ORIENTED,DENIES ABDOMINAL ,BOWEL SOUND PRESENT, NO NAUSEA NOTED,TOLERATED LIQUID DIET WELL, HS SNACK GIVEN,PATIENT WAS SEEN FOR SURGICAL CONSULT, DOES NOT WANT FOR SURGICAL PROCEDURE OPTIONS.
[2017-09-30 20:38] VITALS: BP 110/68
[2017-09-30] MEDS: LEVOFLOXACIN 250MG /D5W 250 MG in PREMIXED 1 EACH IV SCH (21:11)
--- NOTE | 2017-10-01 00:05 | NUR ---
PATIENT SLEPT WELL AFTER SLEEPING PILL ADMIN PER PATIENT REQUESTED, AFIB,A FLUTTER WITH OCC PVC'S.
[2017-10-01 00:09] VITALS: BP 116/68
[2017-10-01 05:02] VITALS: BP 102/74
[2017-10-01] MEDS: ISOSORBIDE DINITRATE 20 MG TABLET PO SCH ×3 (06:00→22:00)
[2017-10-01] MEDS: METRONIDAZOLE 500 MG/NS 100ML 500 MG in PREMIXED 1 EACH IV SCH ×3 (06:40→21:00)
[2017-10-01 06:45] LABS: ALANINE AMINOTRANSFERASE 89 U/L (16-63); ALKALINE PHOSPHATASE 89 U/L (50-136); ASPARTATE AMINOTRANSFERASE 41 U/L (15-37); BILIRUBIN,TOTAL 0.6 mg/dL (0.2-1.0); CARBON DIOXIDE 25 mmol/L (21-32); CHLORIDE 104 mmol/L (98-107); CREATININE 1.5 mg/dL (0.6-1.3); GLUCOSE 102 mg/dL (74-106); MAGNESIUM 1.9 mg/dL (1.8-2.4); PHOSPHOROUS 4.1 mg/dL (2.5-4.9); POTASSIUM 3.4 mmol/L (3.5-5.1); TOTAL PROTEIN, SERUM 6.2 g/dL (6.4-8.2); UREA NITROGEN, BLOOD 43 mg/dL (7-18)
[2017-10-01 07:00] LABS: BASOPHILS % (AUTO) 0.2 % (0.0-2.0); HEMOGLOBIN 11.9 g/dL (12.5-16.3); LYMPHOCYTES # (AUTO) 3.4 K/uL (20.0-40.0)
[2017-10-01 07:15] LABS: EOSINOPHILS # (AUTO) 0.2 K/uL (0.0-0.7); EOSINOPHILS % (AUTO) 1.3 % (0.0-7.0); HEMATOCRIT 37.1 % (36.7-47.1); LYMPHOCYTES % (AUTO) 24.6 % (20.5-51.5); MEAN CORPUSCULAR HGB CONC 32 g/dL (32.5-36.3); MEAN CORPUSCULAR VOLUME 84.3 fL (73.0-96.2); MONOCYTES % (AUTO) 7.4 % (0.0-11.0); NEUTROPHILS # (AUTO) 9.3 K/uL (1.8-8.9); NEUTROPHILS % (AUTO) 66.5 % (38.5-71.5); PLATELET COUNT (AUTO) 318 K/uL (152-348)
--- NOTE | 2017-10-01 07:35 | NUR ---
D/C TELE, PATIENT DENIES PAIN/DISCOMFORT, NO N/V.
[2017-10-01] MEDS ORDERED: POTASSIUM CHLORIDE 20 MEQ TAB.PRT.SR PO ONE (08:30)
--- NOTE | 2017-10-01 08:30 | NUR ---
awake alert and oriented, denies of abdominal pain, no n/v, on 2l/nc 02, needs attended, call light within reach, BP meds not given due to low BP 100/72
--- NOTE | 2017-10-01 08:45 | NUR ---
seen by Dr Storm with orders- carried out
[2017-10-01] MEDS: BUMETANIDE 1 MG TABLET PO SCH (08:58)
[2017-10-01] MEDS: FAMOTIDINE 20 MG TABLET PO SCH (08:58)
[2017-10-01] MEDS: CYANOCOBALAMIN 1,000 MCG TABLET PO SCH (08:58)
[2017-10-01] MEDS: MULTIVIT, IRON, MIN NO. 8, FA TABLET PO SCH (08:58)
[2017-10-01] MEDS: hydrALAZINE HCL 25 MG TABLET PO SCH ×2 (08:59→21:00)
[2017-10-01] MEDS: METOPROLOL SUCCINATE XL 50 MG TAB.SR.24H PO SCH (09:00)
[2017-10-01] MEDS: TEMAZEPAM 30 MG CAPSULE PO PRN (09:00)
[2017-10-01] MEDS: APIXABAN 5 MG TABLET PO SCH ×2 (09:04→17:08)
[2017-10-01] MEDS: Z GUARD REMEDY PASTE 57 GM TUBE TOP SCH ×2 (09:06→21:12)
[2017-10-01 09:16] LABS: EOSINOPHILS % (MANUAL) 1 % (0-8); LYMPHOCYTES % (MANUAL) 18 % (20-40); METAMYELOCYTES % 3 % (0-1); MONOCYTES % (MANUAL) 9 % (2-10); NEUTROPHILS % (MANUAL) 69 % (42-75)
[2017-10-01 11:31] VITALS: BP 98/68
--- NOTE | 2017-10-01 14:00 | NUR ---
tolerated clear liquids, denies of abdominal pain
[2017-10-01 15:50] VITALS: BP 110/65
--- NOTE | 2017-10-01 17:59 | NUR ---
no distress noted, repositioned q 2h with heels off loaded with pillows at all times during shift, denies of abdominal pain, no n/v, all needs attended and met, call light within reach
--- NOTE | 2017-10-01 19:30 | NUR ---
RECEIVED SHIFT REPORT FROM PREVIOUS SHIFT NURSE. PATIENT IS AOX3, COOPERATIVE, APPEARS COMFORTABLE IN BED. PATIENT IS BED BOUND, FALL PRECAUTION IMPLEMENTED. PATIENT IS SAFE, BED/LOW POSITION, CALL LIGHT WITHIN REACH OF PATIENT. WILL ALSO MONITOR PATIENT'S BP THROUGHOUT SHIFT BECAUSE IT IS APPEARING TO BE ON THE LOWER END. SAFETY AND COMFORT WILL BE PROVIDED THROUGHOUT SHIFT.
[2017-10-01 20:13] VITALS: BP 98/70
--- NOTE | 2017-10-01 21:00 | NUR ---
APRESOLINE 25 MG HELD BECAUSE PATIENT'S BLOOD PRESSURE IS LOW: 103/68 AT 1999, PATIENT'S BP WAS 98/70. REVERSE TRENDELENBURG IMPLEMENTED AND INFORMED PATIENT TO DRINK WATER. BP WAS ABLE TO SLIGHTLY IMPROVED. WILL CONTINUE TO MONITOR.
[2017-10-01] MEDS ORDERED: LEVOFLOXACIN 500 MG/D5W 500 MG in PREMIXED 1 EACH IV SCH (22:00)
[2017-10-02] MEDS: TEMAZEPAM 30 MG CAPSULE PO PRN (00:18)
--- NOTE | 2017-10-02 00:20 | NUR ---
PATIENT REQUESTED FOR ANOTHER DOSE OF RESTORIL 30 MG PO BECAUSE HE VERBALIZES THAT HE IS HAVING A DIFFICULT TIME SLEEPING. RESTORIL 30 MG PO GIVEN TO PATIENT. PATIENT IN STABLE CONDITION, NO S/S OF DISTRESS. WILL CONTINUE TO MONITOR.
[2017-10-02 02:38] VITALS: BP 109/76
[2017-10-02] MEDS: METRONIDAZOLE 500 MG/NS 100ML 500 MG in PREMIXED 1 EACH IV SCH (05:20)
[2017-10-02] MEDS: ISOSORBIDE DINITRATE 20 MG TABLET PO SCH (06:00)
[2017-10-02 06:10] VITALS: BP 105/71
[2017-10-02 06:36] LABS: BASOPHILS # (AUTO) 0.1 K/uL (0.0-8.0); BASOPHILS % (AUTO) 0.9 % (0.0-2.0); EOSINOPHILS # (AUTO) 0.2 K/uL (0.0-0.7); EOSINOPHILS % (AUTO) 1.4 % (0.0-7.0); HEMATOCRIT 38.8 % (40-50); HEMOGLOBIN 12.5 G/DL (14.0-18.0); LYMPHOCYTES # (AUTO) 3.3 K/UL (0.8-4.8); LYMPHOCYTES % (AUTO) 25.5 % (20.5-51.5); MEAN CORPUSCULAR HEMOGLOBIN 27.4 UUG (27.0-31.0); MEAN CORPUSCULAR HGB CONC 32 g/dL (32.0-37.0); MEAN CORPUSCULAR VOLUME 85.2 FL (82.0-92.0); MONOCYTES # (AUTO) 0.8 K/UL (0.1-1.30); MONOCYTES % (AUTO) 6.5 % (0.0-11.0); NEUTROPHILS # (AUTO) 8.6 K/UL (1.8-8.9); NEUTROPHILS % (AUTO) 65.7 % (38.5-71.5); PLATELET COUNT (AUTO) 328 K/UL (150-450); RED BLOOD CELL COUNT(AUTO) 4.55 MIL/UL (4.7-6.1)
[2017-10-02 07:02] LABS: ALANINE AMINOTRANSFERASE 70 U/L (16-63); ALKALINE PHOSPHATASE 85 U/L (50-136); ASPARTATE AMINOTRANSFERASE 31 U/L (15-37); BILIRUBIN,TOTAL 0.5 mg/dL (0.2-1.0); CARBON DIOXIDE 28 mmol/L (21-32); CHLORIDE 106 mmol/L (98-107); CREATININE 1.5 mg/dL (0.6-1.3); GLUCOSE 107 mg/dL (74-106); PHOSPHOROUS 3.7 mg/dL (2.5-4.9); POTASSIUM 3.6 mmol/L (3.5-5.1); TOTAL PROTEIN, SERUM 6.2 g/dL (6.4-8.2); UREA NITROGEN, BLOOD 35 mg/dL (7-18)
--- NOTE | 2017-10-02 07:03 | NUR ---
PATIENT SLEPT INTERMITTENTLY THROUGH THE SYSTOLIC BLOOD PRESSURE RANGING IN THE 100s-110s. O2 SATURATION WNL THROUGHOUT SHIFT. PATIENT IN STABLE CONDITION, NO S/S OF DISTRESS. BP MEDICATION HELD DURING SHIFT BECAUSE OF PATIENT'S LOW BLOOD PRESSURE. BED ALARM ON, BED IN LOCKED/LOW POSITION WITH SIDE RAILS UP X2. CALL LIGHT WITHIN REACH.WILL CONTINUE TO MONITOR PATIENT, SAFETY/COMFORT WILL ALSO BE PROVIDED UNTIL END OF SHIFT.
--- NOTE | 2017-10-02 07:30 | NUR ---
PATIENT AWAKE, ALERT,ORIENTED,DENIES ABDOMINAL PAIN ,BOWEL SOUND PRESENT, NO NAUSEA NOTED,TOLERATED LIQUID DIET WELL, CALL LIGHT WITH IN REACH
[2017-10-02] MEDS: BUMETANIDE 1 MG TABLET PO SCH (08:09)
[2017-10-02] MEDS: FAMOTIDINE 20 MG TABLET PO SCH (08:09)
[2017-10-02] MEDS: APIXABAN 5 MG TABLET PO SCH (08:09)
[2017-10-02] MEDS: MULTIVIT, IRON, MIN NO. 8, FA TABLET PO SCH (08:09)
[2017-10-02] MEDS: CYANOCOBALAMIN 1,000 MCG TABLET PO SCH (08:09)
[2017-10-02 08:10] LABS: A/G RATIO 0.7 (0.7-1.7); ALBUMIN 2.3 g/dL (2.9-4.4); ALPHA-1-GLOBULIN 0.5 g/dL (0.0-0.4); ALPHA-2-GLOBULIN 1.1 g/dL (0.4-1.0); BETA GLOBULIN 0.6 g/dL (0.7-1.3); GAMMA GLOBULIN 0.9 g/dL (0.4-1.8); GLOBULIN, TOTAL 3.1 g/dL (2.2-3.9); M-SPIKE 0.3 g/dL (Not Observed)
[2017-10-02] MEDS: Z GUARD REMEDY PASTE 57 GM TUBE TOP SCH (08:24)
[2017-10-02 09:00] VITALS: BP 100/71
[2017-10-02] MEDS: METOPROLOL SUCCINATE XL 50 MG TAB.SR.24H PO SCH (09:00)
[2017-10-02] MEDS: hydrALAZINE HCL 25 MG TABLET PO SCH (09:00)
[2017-10-02] MEDS ORDERED: ACET325T53 PO (09:36)
[2017-10-02] MEDS ORDERED: MENT71OI TOP (09:36)
[2017-10-02] MEDS ORDERED: BUME1TAB13 PO (09:36)
[2017-10-02] MEDS ORDERED: CYAN10009 PO (09:36)
[2017-10-02] MEDS ORDERED: METO50TA7 PO (09:36)
[2017-10-02] MEDS ORDERED: APIX5TAB PO (09:36)
--- NOTE | 2017-10-02 10:57 | NUR ---
D/C ORDERS RECEIVED NOTED AND CARRIED OUT.D/C INSTRUCTIONS AND RN REPORT GIVEN OVER [facility].D/C HEPLOCK PER MD ORDERS.RN OVER [facility] WILL MAKE THE OPP..WITH THE YOUTH CARE SPECIALIST IN TWO WEEK.PT LEFT THE FACILITY VIA AMBULANCES IN STABLE CONDITION.
[2017-10-02] MEDS ORDERED: METRONIDAZOLE 500 MG TABLET PO SCH (14:00)
[2017-10-02] MEDS ORDERED: LEVOFLOXACIN 500 MG TABLET PO SCH (21:00)
== END 2017-10-02 11:02 | DRG 640 ==
LOC: ER 15:25 → TELE 17:02 → MED 10-01 06:55
PROVIDERS: ADMIT Internal Medicine; ATTEND Internal Medicine
DX: E66.01 Morbid (severe) obesity due to excess calories (principal); A41.9 Sepsis, unspecified organism; N17.0 Acute kidney failure with tubular necrosis; K81.0 Acute cholecystitis; E44.0 Moderate protein-calorie malnutrition; R53.2 Functional quadriplegia; E11.22 Type 2 diabetes mellitus with diabetic chronic kidney disease; I48.0 Paroxysmal atrial fibrillation; E88.09 Other disorders of plasma-protein metabolism, not elsewhere classified; I42.9 Cardiomyopathy, unspecified; I13.0 Hypertensive heart and chronic kidney disease with heart failure and stage 1 through stage 4 chronic kidney disease, or unspecified chronic kidney disease; I50.42 Chronic combined systolic (congestive) and diastolic (congestive) heart failure; G47.33 Obstructive sleep apnea (adult) (pediatric); Z68.33 Body mass index [BMI] 33.0-33.9, adult; N18.9 Chronic kidney disease, unspecified; D64.9 Anemia, unspecified; F32.9 Major depressive disorder, single episode, unspecified; N40.0 Benign prostatic hyperplasia without lower urinary tract symptoms; K76.9 Liver disease, unspecified; F41.9 Anxiety disorder, unspecified; I25.2 Old myocardial infarction; Z79.82 Long term (current) use of aspirin; Z53.20 Procedure and treatment not carried out because of patient's decision for unspecified reasons; Z79.899 Other long term (current) drug therapy; I70.0 Atherosclerosis of aorta; I25.10 Atherosclerotic heart disease of native coronary artery without angina pectoris
CPT/HCPCS: 36415; 70030-TC; 71010; 78445; 83605; 83735; 83970; 84100; 84155; 84156; 84165; 84300; 85025; 85730; 86706; 86803; 87040; 87086; 87340; 93005; 93307; A4663; A9537; C1758; J1956; J3490; J7050

== ENCOUNTER 2019-12-06 17:18 | Inpatient (IN) | payer MEDICARE ==
[~2019-12-06] VITALS: Ht 193 cm; Wt 146.1 kg
[~2019-12-06 17:18] MED LIST changes: +ACET325T53 PO; -ALPR0.5T8 PO; +APIX5TAB PO; -ASPI81TA31 PO; -ATOR40TA PO; -BUME1TAB13 PO; +BUME1TAB34 PO; +CLON0.1T PO; +CYAN-51 PO; +ERGO500014 PO; +HYDR-894 PO; -HYDR25TA86 PO; +ISOS20TA8 PO; -Isosorbide Dinitrate PO; +MENT71OI TOP; -METO2.5T2 PO; +METO50TA7 PO; +MULT1TAB11 PO; -Metoprolol Succinate PO; +RANI-655 PO; +TEMA30CA5 PO; -ZOLP10TA2 PO
[2019-12-06] MEDS ORDERED: CARV12.52 PO (17:31)
[2019-12-06] MEDS ORDERED: DOXY100T2 PO (17:31)
[2019-12-06] MEDS ORDERED: AMLO5TAB9 PO (17:31)
[2019-12-06] MEDS ORDERED: FOLIC ACID PO (17:31)
[2019-12-06] MEDS ORDERED: CITA20TA16 PO (17:31)
[2019-12-06] MEDS ORDERED: LEVOFLOXACIN 750MG/D5W 150 ML IV ONE ×2 (17:45→18:23)
[2019-12-06] MEDS ORDERED: VANCOMYCIN IV 1,000 MG in IV DEXTROSE 5% 250 ML IV ONE ×2 (17:45→23:00)
--- NOTE | 2019-12-06 18:00 | NUR ---
CLEANED THE PT. PT CAME SOAKED IN STOOL. BLE DRESSING SOILED. UNDRESSED AND REDRESSED.
[2019-12-06] MEDS ORDERED: VANCOMYCIN IV 200 ML ONE (18:24)
[2019-12-06 18:36] LABS: BASOPHILS % (AUTO) 0.2 % (0.0-2.0); EOSINOPHILS % (AUTO) 0.1 % (0.0-7.0); HEMATOCRIT 43.3 % (36.7-47.1); HEMOGLOBIN 13.6 g/dL (12.5-16.3); LYMPHOCYTES # (AUTO) 2.9 K/uL (20.0-40.0); LYMPHOCYTES % (AUTO) 16.1 % (20.5-51.5); MEAN CORPUSCULAR HEMOGLOBIN 26.8 uug (23.8-33.4); MEAN CORPUSCULAR HGB CONC 31 g/dL (32.5-36.3); MEAN CORPUSCULAR VOLUME 85.4 fL (73.0-96.2); MONOCYTES # (AUTO) 1.2 K/uL (2.0-10.0); MONOCYTES % (AUTO) 6.3 % (0.0-11.0); NEUTROPHILS # (AUTO) 14.1 K/uL (1.8-8.9); NEUTROPHILS % (AUTO) 77.3 % (38.5-71.5); PLATELET COUNT (AUTO) 174 K/uL (152-348); RED BLOOD CELL COUNT(AUTO) 5.07 MIL/uL (4.06-5.63); WHITE BLOOD COUNT (AUTO) 18.2 K/uL (3.6-10.2)
[2019-12-06 18:44] LABS: ALANINE AMINOTRANSFERASE 52 U/L (16-63); ALKALINE PHOSPHATASE 67 U/L (50-136); ASPARTATE AMINOTRANSFERASE 47 U/L (15-37); BILIRUBIN,DIRECT 0.4 mg/dL (0.0-0.2); CARBON DIOXIDE 17 mmol/L (21-32); CHLORIDE 108 mmol/L (98-107); GLUCOSE 97 mg/dL (74-106); TOTAL PROTEIN, SERUM 6.1 g/dL (6.4-8.2)
[2019-12-06 18:53] LABS: POTASSIUM 6.4 mmol/L (3.5-5.1); UREA NITROGEN, BLOOD 179 mg/dL (7-18)
[2019-12-06] MEDS ORDERED: SODIUM BICARBONATE 8.4% 50 MEQ/50 ML DISP.SYRIN IV ONE ×2 (19:00→19:12)
[2019-12-06] MEDS ORDERED: INSULIN REGULAR, HUMAN 300 UNIT/3 ML VIAL IV ONE (19:00)
[2019-12-06] MEDS ORDERED: DEXTROSE 50% 50 ML DISP.SYRIN IV ONE (19:00)
[2019-12-06] MEDS ORDERED: SODIUM POLYSTYRENE SULFONATE 15 G/60 ML LIQUID UDC PO ONE (19:00)
[2019-12-06] MEDS ORDERED: CALCIUM CHLORIDE 1 GM/10 ML DISP.SYRIN IVP ONE ×2 (19:00→19:13)
[2019-12-06] MEDS ORDERED: DEXTROSE 50% 50 ML DISP.SYRIN ONE (19:11)
[2019-12-06] MEDS ORDERED: INSULIN REGULAR, HUMAN 300 UNIT/3 ML VIAL ONE (19:12)
[2019-12-06] MEDS ORDERED: IV NORMAL SALINE 500 ML BAG IV ONE (19:15)
--- NOTE | 2019-12-06 19:31 | NUR ---
Dr Danielle speaking with DR Tian Cantrell from [facility] nephrology.
[2019-12-06] MEDS ORDERED: ALBUTEROL SULFATE 2.5 MG/3 ML NEBU NEB ONE (19:45)
[2019-12-06] MEDS ORDERED: ASPIRIN 81 MG TAB.CHEW PO ONE (19:45)
[2019-12-06] MEDS ORDERED: ALBUTEROL SULFATE 2.5 MG/3 ML NEBU ONE (19:54)
[2019-12-06] MEDS ORDERED: SODIUM POLYSTYRENE SULFONATE 15 G/60 ML LIQUID UDC ONE (19:57)
[2019-12-06] MEDS ORDERED: ASPIRIN 81 MG TAB.CHEW ONE (19:57)
--- NOTE | 2019-12-06 20:59 | NUR ---
Transfered to 3rd floor via gurny with no distress noted.
[2019-12-06] MEDS ORDERED: IV NS 1000 ML 1,000 ML IV ONE (21:45)
--- NOTE | 2019-12-06 21:50 | NUR ---
received patient from ER. temperature 93.4, bp 82/46, o2 97, HR 106 Dr. Bhatia contacted. orders received for bolus NS 1L. change admit from tele to TIEN. report given to night TIEN nurse.
[2019-12-06] MEDS ORDERED: ACETAMINOPHEN 325 MG TABLET PO PRN (22:15)
--- NOTE | 2019-12-06 22:30 | NUR ---
RECEIVED PATIENT FROM CHRISTY SOLORIO, PATIENT BP WAS LOW, AND TEMP LOW, WITH ORDER OF IV NS BOLUS AND BEAR HUGGER FOR LOW TEMP. PATIENT ALERT ORIENTED, NO COMPLAIN OF DISCOMFORT, NO PAIN, ASYMPTOMATIC, PATIENT HAS MULTIPLE WOUNDS/CELLULITIS ON RIGHT LEG, LEFT LEG, R TOES, L TOES, REDNESS AND OPEN WOUND ON RIGHT, LEFT, SACRUM , ALSO RIGHT AND LEFT GROIN RASHES, AND ABDOMINAL FOLDS RASHES, CONT TO MONITOR.
[2019-12-06 22:46] VITALS: BP 82/46
[2019-12-06] MEDS ORDERED: IV 1/2NS 1000 ML 1,000 ML IV PRN (23:45)
[2019-12-07] VITALS (7 sets, daily range): BP systolic 84–98; BP diastolic 39–59
--- NOTE | 2019-12-07 | NUR ---
PATIENT ALERT ORIENTED, NO SOB NO CHEST PAIN, TELE MONITOR SINUS RHYTHM, TEMP STILL LOW 94.2, ORAL, PATIENT HAS NO S/S OF DISTRESS, CONT TO MONITOR.
[2019-12-07] MEDS ORDERED: VANCOMYCIN IV 200 ML ONE (00:33)
[2019-12-07] MEDS ORDERED: SODIUM BICARBONATE 8.4% 50 MEQ/50 ML DISP.SYRIN IV ONE (00:34)
--- NOTE | 2019-12-07 04:28 | NUR ---
PATIENT ALERT ORIENTED, RECHECK TEMP 97.7. NO COMPLAIN OF PAIN.
[2019-12-07 04:40] LABS: *BILIRUBIN,URIN 1+ (NEGATIVE); *BLOOD, URINE 2+ (NEGATIVE); *COLOR,URINE YELLOW (YELLOW); *KETONES,URINE NEGATIVE (NEGATIVE); *UROBILINOGEN,URINE 0.2 E.U./dl (NORMAL); LEUKOCYTE ESTERASE ,URINE NEGATIVE (NEGATIVE); NITRITE, URINE NEGATIVE (NEGATIVE); UGLUCOSE NEGATIVE (NEGATIVE)
[2019-12-07 04:44] LABS: *CLARITY,URINE HAZY (CLEAR)
[2019-12-07 04:47] LABS: BACTERIA,URINE NONE SEEN /HPF (NONE SEEN); RBC,URINE 20-50 /HPF (0-3); SQUAMOUS EPITHELIAL CELL,UR FEW /HPF (NONE SEEN); URINE AMORPHOUS URATE MODERATE /HPF; WBC,URINE 0-3 /HPF (0-3)
[2019-12-07 05:04] LABS: *CREATININE,URINE 192.3 mg/dL (30-125)
[2019-12-07 05:18] LABS: *URINE TOTAL PROTEIN RANDOM 102.8 mg/dL (<150/24HR)
--- NOTE | 2019-12-07 07:30 | NUR ---
sleeping fair. monitored for respiratory distress
[2019-12-07] MEDS ORDERED: DOSING BY PHARMACY-MD TO SPECIFY MED/ROUTE XX PRN (08:30)
[2019-12-07 08:47] LABS: HEMATOCRIT 39.9 % (36.7-47.1); HEMOGLOBIN 12.6 g/dL (12.5-16.3); LYMPHOCYTES % (AUTO) 18.5 % (20.5-51.5); MEAN CORPUSCULAR HEMOGLOBIN 27.5 uug (23.8-33.4); MEAN CORPUSCULAR HGB CONC 32 g/dL (32.5-36.3); MEAN CORPUSCULAR VOLUME 86.8 fL (73.0-96.2); MONOCYTES # (AUTO) 1.6 K/uL (2.0-10.0); MONOCYTES % (AUTO) 9.6 % (0.0-11.0); NEUTROPHILS # (AUTO) 11.6 K/uL (1.8-8.9); NEUTROPHILS % (AUTO) 71.9 % (38.5-71.5); PLATELET COUNT (AUTO) 151 K/uL (152-348); RED BLOOD CELL COUNT(AUTO) 4.59 MIL/uL (4.06-5.63); WHITE BLOOD COUNT (AUTO) 16.2 K/uL (3.6-10.2)
[2019-12-07] MEDS ORDERED: LEVOFLOXACIN 750MG/D5W 750 MG in PREMIXED 1 EACH IV ONE (09:00)
[2019-12-07] MEDS ORDERED: DOXYCYCLINE HYCLATE 100 MG TABLET PO SCH (09:00)
[2019-12-07] MEDS ORDERED: AMLODIPINE 5 MG TABLET PO SCH (09:00)
[2019-12-07] MEDS ORDERED: ACETAMINOPHEN 325 MG TABLET PO PRN (09:00)
[2019-12-07] MEDS ORDERED: CARVEDILOL 12.5 MG TABLET PO SCH (09:00)
[2019-12-07 09:15] LABS: CARBON DIOXIDE 20 mmol/L (21-32); CHLORIDE 108 mmol/L (98-107); CREATININE 4.8 mg/dL (0.6-1.3); GLUCOSE 82 mg/dL (74-106); MAGNESIUM 2.4 mg/dL (1.8-2.4); POTASSIUM 5.4 mmol/L (3.5-5.1)
[2019-12-07] MEDS: FOLIC ACID 1 MG TABLET PO SCH (09:29)
[2019-12-07 09:42] LABS: PHOSPHOROUS 10.3 mg/dL (2.5-4.9); UREA NITROGEN, BLOOD 168 mg/dL (7-18)
[2019-12-07] MEDS ORDERED: APIX2.5T PO (10:58)
[2019-12-07] MEDS: APIXABAN 2.5 MG PO SCH ×2 (11:22→17:11)
--- NOTE | 2019-12-07 11:46 | NUR ---
dr mike in , saw patient. aware b/p 83/47 . made order and carried out. mild sob on exertion , relief when awake.
[2019-12-07] MEDS: CITALOPRAM 20 MG TABLET PO SCH (11:59)
--- NOTE | 2019-12-07 13:49 | NUR ---
Clinical pharmacy note-Vancomycin dosing per pharmacy Subjective: To start Vancomycin dosing on this patient for possible sepsis with BLE cellulitis(on doxycycline outpatient) Objective: BUN 179 Sc 5.0 WBC 16.2 Temp 98.6 Ht 193.04cm Wt 136.078kg(NH clarified with nurse) Assessment/Plan: Patient had Vancomycin 1gram in ED last night at 2039. Night pharmacist dosed additional 1gram(given today @0108) for total 2 grams. Since renal function is unstable(not on HD yet, will check daily for HD status), will start to dose by fall-off random level. Rx will order random tomorrow after checking am labs for renal function. Will follow daily.
--- NOTE | 2019-12-07 15:08 | NUR ---
lactic acid 1.0 , dr mike aware, no new order wound cultures both legs and mrsa nares obtained, sent to lab.
[2019-12-07] MEDS: Z GUARD REMEDY PASTE 57 GM TUBE TOP SCH (16:27)
[2019-12-07] MEDS: SODIUM BICARBONATE IV PRN (16:29)
[2019-12-07] MEDS: [UNRECOGNIZED DRUG - OTHER] IV PRN (16:29)
--- NOTE | 2019-12-07 18:51 | NUR ---
prn respiratory discomfort , relieve by rest. bp trending slowly higher. still poor appetite taling fluids liberally
[2019-12-07] MEDS ORDERED: METOCLOPRAMIDE HCL 10 MG/2 ML VIAL ONE (18:59)
[2019-12-07] MEDS ORDERED: MORPHINE SULFATE 4 MG/1 ML DISP.SYRIN ONE (18:59)
[2019-12-07] MEDS ORDERED: MORPHINE SULFATE 2 MG/1 ML DISP.SYRIN ONE (19:00)
[2019-12-08 01:07] VITALS: BP 107/68
[2019-12-08 05:51] VITALS: BP 104/65
[2019-12-08 06:47] LABS: BASOPHILS % (AUTO) 0.1 % (0.0-2.0); EOSINOPHILS % (AUTO) 0.1 % (0.0-7.0); HEMATOCRIT 39.3 % (36.7-47.1); HEMOGLOBIN 12.6 g/dL (12.5-16.3); LYMPHOCYTES % (AUTO) 19.8 % (20.5-51.5); MEAN CORPUSCULAR HEMOGLOBIN 26.9 uug (23.8-33.4); MEAN CORPUSCULAR HGB CONC 32 g/dL (32.5-36.3); MEAN CORPUSCULAR VOLUME 84.1 fL (73.0-96.2); MONOCYTES # (AUTO) 1.7 K/uL (2.0-10.0); NEUTROPHILS # (AUTO) 10.6 K/uL (1.8-8.9); PLATELET COUNT (AUTO) 135 K/uL (152-348); RED BLOOD CELL COUNT(AUTO) 4.67 MIL/uL (4.06-5.63); WHITE BLOOD COUNT (AUTO) 15.3 K/uL (3.6-10.2)
--- NOTE | 2019-12-08 06:53 | NUR ---
Pt rested well in between care; pt spoke to a friend Jostin Proctor) and gave permission to give information; dressing done to BLE this AM; c/o generalized pain and tylenol given; repositioned as needed; SOB on exertion; needs attended; Addendum: 12/08/19 at 0657 by BÁRBARA MCKEE RN pt normothermic and sbp 100s; continue to monitor; continue plan of care.
[2019-12-08 07:11] LABS: CARBON DIOXIDE 18 mmol/L (21-32); CHLORIDE 108 mmol/L (98-107); GLUCOSE 90 mg/dL (74-106); MAGNESIUM 2.5 mg/dL (1.8-2.4)
--- NOTE | 2019-12-08 07:15 | NUR ---
RECEIVED PATIENT SLEEPING IN BED. NO ACUTE DISTRESS NOTED. PATIENT OF 2L VIA NC. BED IN LOWEST POSITION, SIDE RAILS UP X2, CALL LIGHT WITHIN REACH. WILL CONTINUE TO MONITOR.
--- NOTE | 2019-12-08 07:30 | NUR ---
LAB REPORTED CRITICAL LAB FOR PHOSPHORUS AND BUN. NOTIFIED DR DE SANTIAGO NO NEW ORDERS GIVEN.
[2019-12-08 07:38] LABS: UREA NITROGEN, BLOOD 171 mg/dL (7-18)
[2019-12-08 08:00] VITALS: BP 113/60
[2019-12-08] MEDS: FOLIC ACID 1 MG TABLET PO SCH (08:37)
[2019-12-08] MEDS: CITALOPRAM 20 MG TABLET PO SCH (08:37)
[2019-12-08] MEDS: SEVELAMER CARBONATE 800 MG TABLET PO SCH ×3 (08:37→17:35)
[2019-12-08] MEDS: APIXABAN 2.5 MG PO SCH ×2 (08:38→17:37)
[2019-12-08] MEDS: [UNRECOGNIZED DRUG - OTHER] IV PRN (11:00)
[2019-12-08] MEDS: SODIUM BICARBONATE IV PRN (11:00)
[2019-12-08 11:45] VITALS: BP 97/57
--- NOTE | 2019-12-08 12:50 | NUR ---
Clinical pharmacy note-Vancomycin dosing per pharmacy Subjective: To start Vancomycin dosing on this patient for possible sepsis with BLE cellulitis(on doxycycline outpatient) Objective: BUN 171 Sc 5.0 (No HD patient yet- per RN) WBC 15.3 Temp 97.6 Vanco random level on 12/08 with am labs: 14.4 Ht 193.04cm Wt 136.078kg(NH clarified with nurse) Assessment/Plan: Since renal function is unstable(not on HD yet, will check daily for HD status), will continue to dose by fall-off random level. Since vanco random level is 14.4 mcg/ml, will give vanco 2gm IVPB x1 today at 1500. Rx will review renal function in am &decide when to order next random level for further dosing
[2019-12-08] MEDS ORDERED: VANCOMYCIN IV 2,000 MG in IV DEXTROSE 5% 500 ML IV ONE (15:00)
[2019-12-08 16:05] VITALS: BP 130/71
--- NOTE | 2019-12-08 18:21 | NUR ---
PATIENT RESTED THROUGHOUT DAY. PATIENT DENIED PAIN AND DISCOMFORT. NO ACUTE DISTRESS NOTED. PATIENT REPORTS SOB AT TIME OF EXCRETION. SAFETY MEASURES PROVIDED. WILL ENDORSE TO ONCOMING NURSE.
[2019-12-08 20:22] VITALS: BP 96/66
[2019-12-09] VITALS (7 sets, daily range): BP systolic 103–128; BP diastolic 63–84
[2019-12-09] MEDS: SODIUM BICARBONATE IV PRN ×2 (00:32→15:01)
[2019-12-09] MEDS: [UNRECOGNIZED DRUG - OTHER] IV PRN ×2 (00:32→15:01)
[2019-12-09 06:44] LABS: BASOPHILS % (AUTO) 0.1 % (0.0-2.0); EOSINOPHILS # (AUTO) 0.1 K/uL (0.0-0.7); EOSINOPHILS % (AUTO) 0.4 % (0.0-7.0); HEMATOCRIT 40.3 % (36.7-47.1); HEMOGLOBIN 12.6 g/dL (12.5-16.3); LYMPHOCYTES # (AUTO) 2.7 K/uL (20.0-40.0); LYMPHOCYTES % (AUTO) 19.1 % (20.5-51.5); MEAN CORPUSCULAR HEMOGLOBIN 26.8 uug (23.8-33.4); MEAN CORPUSCULAR HGB CONC 31 g/dL (32.5-36.3); MONOCYTES # (AUTO) 1.5 K/uL (2.0-10.0); MONOCYTES % (AUTO) 11.1 % (0.0-11.0); NEUTROPHILS # (AUTO) 9.7 K/uL (1.8-8.9); NEUTROPHILS % (AUTO) 69.3 % (38.5-71.5); PLATELET COUNT (AUTO) 106 K/uL (152-348); RED BLOOD CELL COUNT(AUTO) 4.68 MIL/uL (4.06-5.63)
[2019-12-09 06:52] LABS: CARBON DIOXIDE 24 mmol/L (21-32); CHLORIDE 109 mmol/L (98-107); CREATININE 4.6 mg/dL (0.6-1.3); GLUCOSE 87 mg/dL (74-106); MAGNESIUM 2.3 mg/dL (1.8-2.4); POTASSIUM 4.9 mmol/L (3.5-5.1)
--- NOTE | 2019-12-09 06:53 | NUR ---
Pt rested well in between care; needs attended; VSS; dressing done to BLE wounds;
[2019-12-09 07:53] LABS: UREA NITROGEN, BLOOD 160 mg/dL (7-18)
[2019-12-09 07:57] LABS: PHOSPHOROUS 8.2 mg/dL (2.5-4.9)
[2019-12-09] MEDS: SEVELAMER CARBONATE 800 MG TABLET PO SCH ×3 (08:48→17:37)
[2019-12-09] MEDS: CITALOPRAM 20 MG TABLET PO SCH (08:48)
[2019-12-09] MEDS: FOLIC ACID 1 MG TABLET PO SCH (08:50)
[2019-12-09] MEDS: APIXABAN 2.5 MG PO SCH ×2 (08:50→17:37)
[2019-12-09] MEDS ORDERED: LEVOFLOXACIN 500 MG/D5W 500 MG in PREMIXED 1 EACH IV SCH (09:00)
[2019-12-09] MEDS: CARVEDILOL 6.25 MG TABLET PO SCH ×2 (11:03→17:35)
--- NOTE | 2019-12-09 14:05 | NUR ---
WOUND CARE CONSULT: PT PRESENTS WITH RASHES TO ABDOMINAL/GROIN FOLDS, BUTTOCKS AND PERINEUM WITH INCONTINENCE ASSOCIATED SKIN DAMAGE, LARGE OPEN BLISTERS TO LOWER LEGS AND FEET, EDEMA AND DRY TOE WOUNDS, ALL PRESENT ON ADMISSION. RECOMMEND DPM CONSULT. DR VERNON NOTIFIED OF CONSULT REQUEST. RECOMMENDATIONS MADE FOR SKIN CARE AND PROTECTION WELL LOWER EXTREMITY WOUND CARE RECOMMENDATIONS TIL SEEN BY DPM. DISCUSSED WITH NURSING STAFF. WILL SEE CLAUDY CAZARES IN AGREEMENT WITH PLAN OF CARE. Addendum: 12/09/19 at 1407 by KIM WAGNER RN Amended: Links added.
--- NOTE | 2019-12-09 14:27 | NUR ---
Clinical pharmacy note-Vancomycin dosing per pharmacy Subjective: To continue Vancomycin dosing on this patient for possible sepsis with BLE cellulitis(on doxycycline outpatient) Objective: BUN 160 Sc 4.6 (No HD patient yet- per RN) WBC 14 Temp 98.3 Vanco random level on 12/08 with am labs: 14.4 Ht 193.04cm Wt 136.078kg(NH clarified with nurse) Assessment/Plan: Since renal function is unstable(not on HD yet, will check daily for HD status), will continue to dose by fall-off random level. Last vanco 2gm IVPB x1 given 12/08 1500. Per today's renal function, last random level, and timing of last dose, no dose for today. Next random ordered for tomorrow with am labs. Will check and redose as appropriate. Will follow
[2019-12-09] MEDS: CLOTRIMAZOLE 1% CREAM 30 GM TUBE TOP SCH (17:33)
[2019-12-09] MEDS: CEFTRIAXONE 1 G in IV DEXTROSE 5% 50 ML IV SCH (17:33)
--- NOTE | 2019-12-09 19:42 | NUR ---
Received patient lying in bed. AAOX4. In no apparent distress. On O2 at 2LPM via NC in place. O2 sat at 99%. VS WNL. A. Flutter on tele at 87/min. IV site on left FA intact and patent. IVF infusing. Delvalle catheter intact and draining via gravity. Dressing to both LE intact and clean. Delvalle catheter intact and draining via gravity. Safety measure initiated and call wheat within reached.
[2019-12-09] MEDS: ATORVASTATIN 40 MG TABLET PO SCH (20:01)
[2019-12-10] VITALS (7 sets, daily range): BP systolic 104–132; BP diastolic 64–82
[2019-12-10] MEDS: [UNRECOGNIZED DRUG - OTHER] IV PRN ×2 (04:29→15:38)
[2019-12-10] MEDS: SODIUM BICARBONATE IV PRN ×2 (04:29→15:38)
--- NOTE | 2019-12-10 06:14 | NUR ---
AAOX4. In no acute distress. O2 at 2LPM via NC in place. O2 sat at 96%. A. Flutter on tele with PVC and V pacing at 130/min. IV site on left FA intact and patent. IVF infusing. Delvalel catheter intact and draining via gravity. Dressing to both LE intact, dry and clean. Delvalle catheter intact and draining via gravity. Safety measure maintained and call wheat within reached.
[2019-12-10 06:44] LABS: BASOPHILS % (AUTO) 0.1 % (0.0-2.0); EOSINOPHILS # (AUTO) 0.1 K/uL (0.0-0.7); EOSINOPHILS % (AUTO) 0.7 % (0.0-7.0); HEMATOCRIT 39.5 % (36.7-47.1); HEMOGLOBIN 12.3 g/dL (12.5-16.3); LYMPHOCYTES # (AUTO) 2.4 K/uL (20.0-40.0); LYMPHOCYTES % (AUTO) 18.1 % (20.5-51.5); MEAN CORPUSCULAR HEMOGLOBIN 26.9 uug (23.8-33.4); MEAN CORPUSCULAR HGB CONC 31 g/dL (32.5-36.3); MEAN CORPUSCULAR VOLUME 86.6 fL (73.0-96.2); MONOCYTES # (AUTO) 1.3 K/uL (2.0-10.0); MONOCYTES % (AUTO) 10.1 % (0.0-11.0); NEUTROPHILS # (AUTO) 9.4 K/uL (1.8-8.9); PLATELET COUNT (AUTO) 100 K/uL (152-348); RED BLOOD CELL COUNT(AUTO) 4.56 MIL/uL (4.06-5.63); WHITE BLOOD COUNT (AUTO) 13.2 K/uL (3.6-10.2)
[2019-12-10 06:57] LABS: CARBON DIOXIDE 27 mmol/L (21-32); CHLORIDE 112 mmol/L (98-107); CREATININE 3.6 mg/dL (0.6-1.3); GLUCOSE 92 mg/dL (74-106); MAGNESIUM 2.1 mg/dL (1.8-2.4); PHOSPHOROUS 6.7 mg/dL (2.5-4.9); VANCOMYCIN,RANDOM 20.2 ug/mL (18.0-26.0)
[2019-12-10 06:59] LABS: UREA NITROGEN, BLOOD 134 mg/dL (7-18)
--- NOTE | 2019-12-10 08:00 | NUR ---
AWAKE ALERT AND ORIENTED X3 NO SS OF PAIN OR DISTRESS WITH 4L O2 VIA NC SATURATING 97%. CONTINUE TIEN STATUS ORDERED
[2019-12-10] MEDS: CITALOPRAM 20 MG TABLET PO SCH (08:20)
[2019-12-10] MEDS: FOLIC ACID 1 MG TABLET PO SCH (08:20)
[2019-12-10] MEDS: CARVEDILOL 6.25 MG TABLET PO SCH ×2 (08:20→16:50)
[2019-12-10] MEDS: SEVELAMER CARBONATE 800 MG TABLET PO SCH ×3 (08:20→16:48)
[2019-12-10] MEDS: Z GUARD REMEDY PASTE 57 GM TUBE TOP SCH (08:23)
[2019-12-10] MEDS: APIXABAN 2.5 MG PO SCH (08:24)
[2019-12-10] MEDS: CLOTRIMAZOLE 1% CREAM 30 GM TUBE TOP SCH ×2 (08:25→16:50)
[2019-12-10] MEDS ORDERED: SILVER SULFADIAZINE 1% CREAM 50 GM TP SCH (09:00)
--- NOTE | 2019-12-10 11:56 | NUR ---
CONTINUE WITH TX PLAN ORDERED
--- NOTE | 2019-12-10 12:25 | NUR ---
Clinical pharmacy note-Vancomycin dosing per pharmacy Subjective: To continue Vancomycin dosing on this patient for possible sepsis with BLE cellulitis(on doxycycline outpatient) Objective: BUN 134 Sc 3.6(No HD patient yet- per RN) WBC 13.2 Temp 97.8 Vanco random level on 12/08 with am labs: 14.4 Vanco random level on 12/10 with am labs: 20.2 Ht 193.04cm Wt 136.078kg(NH clarified with nurse) Assessment/Plan: Since renal function is unstable(not on HD yet, will check daily for HD status), will continue to dose by fall-off random level. Since vanco random level wuith am labs is 20.2, will give vanco 2 gm IVPB x1 today at 1800. Pharmacy alejandro review the level in am & decide when to order next random for re-dosing. Will follow
[2019-12-10] MEDS: APIXABAN 5 MG TABLET PO SCH (16:49)
[2019-12-10] MEDS: CEFTRIAXONE 1 G in IV DEXTROSE 5% 50 ML IV SCH (16:50)
[2019-12-10] MEDS ORDERED: CARVEDILOL 6.25 MG TABLET PO ONE (17:45)
[2019-12-10] MEDS ORDERED: AMIODARONE HCL IV 900 MG in IV DEXTROSE 5% 482 ML IV PRN (18:00)
[2019-12-10] MEDS ORDERED: AMIODARONE HCL IV 150 MG in IV DEXTROSE 5% 100 ML IV ONE (18:00)
[2019-12-10] MEDS ORDERED: CARVEDILOL 6.25 MG TABLET PO SCH (18:00)
[2019-12-10] MEDS ORDERED: VANCOMYCIN IV 2,000 MG in IV DEXTROSE 5% 500 ML IV ONE (18:00)
[2019-12-10] MEDS: CARVEDILOL 12.5 MG TABLET PO SCH (18:00)
--- NOTE | 2019-12-10 18:20 | NUR ---
per dr charles COREG 12.5 BID TO START IN AM
--- NOTE | 2019-12-10 18:38 | NUR ---
SEEN BY DR SORIANO PATIENT STATUS CHANGED BACK TO TIEN FOR AMIODARONE KRYSTIAN
[2019-12-10] MEDS: ATORVASTATIN 40 MG TABLET PO SCH (20:35)
[2019-12-11 00:30] VITALS: BP 118/58
[2019-12-11] MEDS: [UNRECOGNIZED DRUG - OTHER] IV PRN (06:31)
[2019-12-11] MEDS: SODIUM BICARBONATE IV PRN (06:31)
--- NOTE | 2019-12-11 07:32 | NUR ---
Pt rested well in between care; assisted to meet hygiene needs; dressing done to BLE; assisted with PO intake;on going amio drip; continue to monitor; continue plan of care.
--- NOTE | 2019-12-11 08:00 | NUR ---
AWAKE ALERT AND ORIENTED X3 NO SS OF ACUTE PAIN OR DISTRESS. WILL CONTINUE PLAN OF CARE WITH IV ANTIBIOTIC, PHYSICAL THERAPY TOLERATED. VARIABLE FLUTTER ULR AFIB. ON AMIODARONE DRIP PER PROTOCOL
[2019-12-11] MEDS: FOLIC ACID 1 MG TABLET PO SCH (08:07)
[2019-12-11] MEDS: CITALOPRAM 20 MG TABLET PO SCH (08:07)
[2019-12-11] MEDS: SEVELAMER CARBONATE 800 MG TABLET PO SCH ×3 (08:07→17:24)
[2019-12-11] MEDS: CARVEDILOL 12.5 MG TABLET PO SCH ×2 (08:10→17:26)
[2019-12-11] MEDS: CLOTRIMAZOLE 1% CREAM 30 GM TUBE TOP SCH ×2 (08:11→17:27)
[2019-12-11] MEDS: APIXABAN 5 MG TABLET PO SCH ×2 (08:12→17:25)
[2019-12-11 09:43] VITALS: BP 110/64
--- NOTE | 2019-12-11 12:00 | NUR ---
CONTINUE AMIODARONE DRIP PER PROTOCOL DR SORIANO AGREED TO FINISH DRIP TONIGHT PER PROTOCOL. HR SUSTAINING AT THE 90/MIN. DENIES CP/SOB
[2019-12-11 12:28] VITALS: BP 101/62
--- NOTE | 2019-12-11 13:30 | NUR ---
Clinical pharmacy note-Vancomycin dosing per pharmacy Subjective: To continue Vancomycin dosing on this patient for possible sepsis with BLE cellulitis(on doxycycline outpatient) Objective: BUN 134 (12/10) Sc 3.6(No HD patient yet- per RN) (12/10) WBC 13.2 (12/10) Temp 97.9 Vanco random level on 12/08 with am labs: 14.4 Vanco random level on 12/10 with am labs: 20.2 Ht 193.04cm Wt 136.078kg(NH clarified with nurse) Assessment/Plan: Since renal function is unstable(not on HD yet, will check daily for HD status), will continue to dose by fall-off random level. Last dose vanco 2 gm IVPB given last night at 1800. Based on last level, timing of last dose, no dose for today. Will check labs in am and order next random as appropriate for further dosing. Will follow
[2019-12-11 15:33] VITALS: BP 113/54
[2019-12-11 16:31] LABS: BASOPHILS % (AUTO) 0.1 % (0.0-2.0); EOSINOPHILS # (AUTO) 0.2 K/uL (0.0-0.7); HEMOGLOBIN 11.5 g/dL (12.5-16.3); LYMPHOCYTES # (AUTO) 2.2 K/uL (20.0-40.0)
[2019-12-11 16:35] LABS: ALANINE AMINOTRANSFERASE 24 U/L (16-63); ALKALINE PHOSPHATASE 44 U/L (50-136); ASPARTATE AMINOTRANSFERASE 12 U/L (15-37); BILIRUBIN,TOTAL 0.5 mg/dL (0.2-1.0); CARBON DIOXIDE 30 mmol/L (21-32); CHLORIDE 110 mmol/L (98-107); CREATININE 2.8 mg/dL (0.6-1.3); GLUCOSE 161 mg/dL (74-106); MAGNESIUM 2.1 mg/dL (1.8-2.4); PHOSPHOROUS 4.7 mg/dL (2.5-4.9); POTASSIUM 4.1 mmol/L (3.5-5.1)
[2019-12-11 16:36] LABS: UREA NITROGEN, BLOOD 104 mg/dL (7-18)
[2019-12-11 16:37] LABS: EOSINOPHILS % (AUTO) 1.8 % (0.0-7.0); HEMATOCRIT 36.5 % (36.7-47.1); LYMPHOCYTES % (AUTO) 17.5 % (20.5-51.5); MEAN CORPUSCULAR HGB CONC 31 g/dL (32.5-36.3); MEAN CORPUSCULAR VOLUME 86.2 fL (73.0-96.2); MONOCYTES # (AUTO) 1.2 K/uL (2.0-10.0); MONOCYTES % (AUTO) 9.5 % (0.0-11.0); NEUTROPHILS % (AUTO) 71.1 % (38.5-71.5); PLATELET COUNT (AUTO) 93 K/uL (152-348); RED BLOOD CELL COUNT(AUTO) 4.24 MIL/uL (4.06-5.63); WHITE BLOOD COUNT (AUTO) 12.7 K/uL (3.6-10.2)
[2019-12-11 17:32] LABS: BAND % (MANUAL) 2 % (0-10); EOSINOPHILS % (MANUAL) 2 % (0-8); LYMPHOCYTES % (MANUAL) 22 % (20-40); MONOCYTES % (MANUAL) 9 % (2-10); NEUTROPHILS % (MANUAL) 65 % (42-75)
[2019-12-11] MEDS: CEFTRIAXONE 1 G in IV DEXTROSE 5% 50 ML IV SCH (17:44)
--- NOTE | 2019-12-11 18:39 | NUR ---
AMIODARONE DRIP COMPLETED, REMAINS WITH VARIABLE FLUTTER ULR AFIB AT A RATE 80-90/MIN. NO ACUTE CHANGE
[2019-12-11 20:13] VITALS: BP 100/50
[2019-12-11] MEDS: ATORVASTATIN 40 MG TABLET PO SCH (21:11)
[2019-12-11] MEDS: AMIODARONE HCL 200 MG TABLET PO SCH (21:12)
[2019-12-12 00:13] VITALS: BP 112/72
[2019-12-12 04:00] VITALS: BP 123/68
[2019-12-12 06:25] LABS: BASOPHILS % (AUTO) 0.2 % (0.0-2.0); EOSINOPHILS # (AUTO) 0.2 K/uL (0.0-0.7); EOSINOPHILS % (AUTO) 1.6 % (0.0-7.0); HEMATOCRIT 36.9 % (36.7-47.1); HEMOGLOBIN 11.6 g/dL (12.5-16.3); LYMPHOCYTES # (AUTO) 2.3 K/uL (20.0-40.0); LYMPHOCYTES % (AUTO) 18.3 % (20.5-51.5); MEAN CORPUSCULAR HEMOGLOBIN 26.9 uug (23.8-33.4); MEAN CORPUSCULAR HGB CONC 31 g/dL (32.5-36.3); MONOCYTES # (AUTO) 1.3 K/uL (2.0-10.0); MONOCYTES % (AUTO) 10.1 % (0.0-11.0); NEUTROPHILS # (AUTO) 8.7 K/uL (1.8-8.9); NEUTROPHILS % (AUTO) 69.8 % (38.5-71.5); PLATELET COUNT (AUTO) 94 K/uL (152-348); WHITE BLOOD COUNT (AUTO) 12.5 K/uL (3.6-10.2)
[2019-12-12 06:46] LABS: ALANINE AMINOTRANSFERASE 27 U/L (16-63); ALKALINE PHOSPHATASE 40 U/L (50-136); ASPARTATE AMINOTRANSFERASE 14 U/L (15-37); BILIRUBIN,TOTAL 0.6 mg/dL (0.2-1.0); CARBON DIOXIDE 31 mmol/L (21-32); CHLORIDE 110 mmol/L (98-107); CREATININE 2.6 mg/dL (0.6-1.3); GLUCOSE 105 mg/dL (74-106); MAGNESIUM 2.1 mg/dL (1.8-2.4); PHOSPHOROUS 4.1 mg/dL (2.5-4.9); POTASSIUM 4.4 mmol/L (3.5-5.1); TOTAL PROTEIN, SERUM 5.1 g/dL (6.4-8.2)
[2019-12-12 06:53] LABS: UREA NITROGEN, BLOOD 97 mg/dL (7-18)
--- NOTE | 2019-12-12 07:25 | NUR ---
Received patient in Bed, awake and verbally responsive. No signs of distress noted. NO SOB. ON 2L/min via Nasal Cannula, NO complain of Pain or discomfort at this time. Will continue to monitor.
[2019-12-12] MEDS ORDERED: VANC2PLA5 IV (07:31)
[2019-12-12] MEDS ORDERED: ATOR40TA PO (07:31)
[2019-12-12] MEDS ORDERED: RXVAN XX (07:31)
[2019-12-12] MEDS ORDERED: SEVE800T7 PO (07:31)
[2019-12-12] MEDS ORDERED: AMIO200T6 PO (07:31)
[2019-12-12] MEDS ORDERED: CLOT30CR24 TOP (07:31)
[2019-12-12] MEDS ORDERED: CEFT1FRO2 IV (07:31)
[2019-12-12] MEDS ORDERED: CARV12.52 PO (07:33)
--- NOTE | 2019-12-12 08:00 | NUR ---
Patient with Discharge Order to [facility] today.
[2019-12-12] MEDS: SEVELAMER CARBONATE 800 MG TABLET PO SCH ×2 (08:02→12:21)
[2019-12-12] MEDS: CARVEDILOL 12.5 MG TABLET PO SCH (08:02)
[2019-12-12] MEDS: CITALOPRAM 20 MG TABLET PO SCH (08:36)
[2019-12-12] MEDS: AMIODARONE HCL 200 MG TABLET PO SCH (08:37)
[2019-12-12] MEDS: APIXABAN 5 MG TABLET PO SCH (08:38)
[2019-12-12] MEDS: FOLIC ACID 1 MG TABLET PO SCH (08:39)
[2019-12-12] MEDS ORDERED: SILVER SULFADIAZINE 1% CREAM 50 GM TP SCH (09:00)
[2019-12-12] MEDS: CLOTRIMAZOLE 1% CREAM 30 GM TUBE TOP SCH (09:36)
--- NOTE | 2019-12-12 11:00 | NUR ---
Called [facility] and spoke to Stephanie SOLORIO and gave report, per stephanie SOLORIO patient will keep his Delvalle catheter and MAYURI midline.
[2019-12-12 11:36] VITALS: BP 105/50
--- NOTE | 2019-12-12 11:59 | NUR ---
Clinical pharmacy note-Vancomycin dosing per pharmacy Subjective: To continue Vancomycin dosing on this patient for possible sepsis with BLE cellulitis(on doxycycline outpatient) Objective: BUN 97 Sc 2.6(No HD patient yet- per MD note ) WBC 12.5 Temp 98 Vanco random level on 12/08 with am labs: 14.4 Vanco random level on 12/10 with am labs: 20.2 Vanco random level on 12/12 with am labs:19.8 Ht 193.04cm Wt 136.078kg(NH clarified with nurse) Assessment/Plan: Since renal function is unstable(not on HD yet, will check daily for HD status), will continue to dose by fall-off random level. Since Vancomycin random is under 20, will dose 2 gram today(scheduled to give at 1400) and draw random (not ordered yet) after checking tomorrow labs. Will follow daily.
--- NOTE | 2019-12-12 13:50 | NUR ---
Patient is awake and verbally responsive. No signs of distress noted. No SOB. On Oxygen at 2L/min, tolerated well. No complain of Pain or discomfort. Removed wrist band, Left Hand IV, and [employer]. All belongings was signed and sent with patient. Patient was supervisory it specialist by 2 EMT in stable condition.
[2019-12-12] MEDS ORDERED: VANCOMYCIN IV 2,000 MG in IV DEXTROSE 5% 500 ML IV ONE (14:00)
== END 2019-12-12 13:50 | DRG 871 ==
LOC: ER 17:20 → TELE3 20:46 → TELE-TD3 22:00 → TELE3 12-10 15:32 → TELE-TD3 12-10 18:25 → UNDODISIN 12-10 18:46 → TELE3 12-12 06:53
PROVIDERS: ADMIT Internal Medicine; ATTEND Internal Medicine Nephrology
PROC: 05HD33Z Insertion of Infusion Device into Right Cephalic Vein, Percutaneous Approach (ICD-10-PCS; principal; 2019-12-10)
DX: A41.9 Sepsis, unspecified organism (principal); N17.0 Acute kidney failure with tubular necrosis; I50.23 Acute on chronic systolic (congestive) heart failure; I21.A1 Myocardial infarction type 2; I13.0 Hypertensive heart and chronic kidney disease with heart failure and stage 1 through stage 4 chronic kidney disease, or unspecified chronic kidney disease; L03.115 Cellulitis of right lower limb; L03.116 Cellulitis of left lower limb; I42.8 Other cardiomyopathies; I48.92 Unspecified atrial flutter; I50.42 Chronic combined systolic (congestive) and diastolic (congestive) heart failure; N18.9 Chronic kidney disease, unspecified; E87.5 Hyperkalemia; E66.01 Morbid (severe) obesity due to excess calories; Z88.0 Allergy status to penicillin; Z95.810 Presence of automatic (implantable) cardiac defibrillator; R23.8 Other skin changes; I87.2 Venous insufficiency (chronic) (peripheral); R73.03 Prediabetes; I48.0 Paroxysmal atrial fibrillation; N40.0 Benign prostatic hyperplasia without lower urinary tract symptoms; L27.0 Generalized skin eruption due to drugs and medicaments taken internally; E83.39 Other disorders of phosphorus metabolism; I25.10 Atherosclerotic heart disease of native coronary artery without angina pectoris; Z79.01 Long term (current) use of anticoagulants
CPT/HCPCS: 36415; 70030-TC; 71045; 76770; 83605; 83735; 84100; 84156; 84157; 84443; 85025; 85730; 87040; 87070; 87077; 87086; 93005; 93307; A4217; A4663; G0378; J0282; J0696; J1815; J1956; J2270; J2765; J3370; J3490; J7030; J7050; J7060

== ENCOUNTER 2019-12-15 09:09 | Inpatient (IN) | payer MEDICARE ==
[~2019-12-15] VITALS: Ht 193 cm; Wt 159.7 kg
[~2019-12-15 09:09] MED LIST changes: +AMIO200T6 PO; +AMLO5TAB9 PO; +APIX2.5T PO; -APIX5TAB PO; +ATOR40TA PO; -BUME1TAB34 PO; +CARV12.52 PO; +CEFT1FRO2 IV; +CITA20TA16 PO; -CLON0.1T PO; +CLOT30CR24 TOP; -CYAN-51 PO; +DOXY100T2 PO; -ERGO500014 PO; +FOLIC ACID PO; -HYDR-894 PO; -ISOS20TA8 PO; -MENT71OI TOP; -METO50TA7 PO; -MULT1TAB11 PO; -RANI-655 PO; +RXVAN XX; +SEVE800T7 PO; -TEMA30CA5 PO; +VANC2PLA5 IV
--- NOTE | 2019-12-15 09:10 | NUR ---
BIB RA 90 from [facility] with c/o SOB (mild/moderate). Pt brought directly to room 1B, Dr. Rosa and nursing staff at bedside. Room air O2 sat = 94%, and 97% on O2 2L via n/c. Pt placed on cardiac catheterization technologist and cont pulse ox.
[2019-12-15] MEDS ORDERED: ALBUTEROL SULFATE 2.5 MG/3 ML NEBU ONE (09:29)
[2019-12-15] MEDS ORDERED: ALBUTEROL SULFATE 2.5 MG/3 ML NEBU NEB ONE (09:30)
--- NOTE | 2019-12-15 09:30 | NUR ---
Pt placed on HHN TX by [employer].
[2019-12-15 09:40] LABS: BASOPHILS % (AUTO) 0.1 % (0.0-2.0); EOSINOPHILS # (AUTO) 0.2 K/uL (0.0-0.7); EOSINOPHILS % (AUTO) 1.2 % (0.0-7.0); HEMATOCRIT 34.6 % (36.7-47.1); HEMOGLOBIN 10.9 g/dL (12.5-16.3); LYMPHOCYTES # (AUTO) 3.6 K/uL (20.0-40.0); LYMPHOCYTES % (AUTO) 17.3 % (20.5-51.5); MEAN CORPUSCULAR HEMOGLOBIN 27.1 uug (23.8-33.4); MEAN CORPUSCULAR HGB CONC 31 g/dL (32.5-36.3); MEAN CORPUSCULAR VOLUME 86.4 fL (73.0-96.2); MONOCYTES # (AUTO) 1.4 K/uL (2.0-10.0); MONOCYTES % (AUTO) 6.8 % (0.0-11.0); NEUTROPHILS # (AUTO) 15.5 K/uL (1.8-8.9); NEUTROPHILS % (AUTO) 74.6 % (38.5-71.5); PLATELET COUNT (AUTO) 121 K/uL (152-348); WHITE BLOOD COUNT (AUTO) 20.7 K/uL (3.6-10.2)
[2019-12-15] MEDS ORDERED: TUBE5VIA2 ID (09:46)
[2019-12-15] MEDS ORDERED: VANC1PIG IV (09:46)
[2019-12-15 10:00] LABS: ALANINE AMINOTRANSFERASE 31 U/L (16-63); ALKALINE PHOSPHATASE 53 U/L (50-136); ASPARTATE AMINOTRANSFERASE 17 U/L (15-37); BILIRUBIN,DIRECT 0.3 mg/dL (0.0-0.2); BILIRUBIN,TOTAL 1.1 mg/dL (0.2-1.0); CARBON DIOXIDE 30 mmol/L (21-32); CHLORIDE 102 mmol/L (98-107); GLUCOSE 138 mg/dL (74-106); POTASSIUM 4.6 mmol/L (3.5-5.1); TOTAL PROTEIN, SERUM 5.6 g/dL (6.4-8.2); UREA NITROGEN, BLOOD 57 mg/dL (7-18)
[2019-12-15 10:02] LABS: CREATININE 1.9 mg/dL (0.6-1.3)
[2019-12-15 10:09] LABS: *BILIRUBIN,URIN NEGATIVE (NEGATIVE); *BLOOD, URINE 1+ (NEGATIVE); *COLOR,URINE YELLOW (YELLOW); *KETONES,URINE NEGATIVE (NEGATIVE); *UROBILINOGEN,URINE 0.2 E.U./dl (NORMAL); LEUKOCYTE ESTERASE ,URINE TRACE (NEGATIVE); NITRITE, URINE NEGATIVE (NEGATIVE); PH,URINE 5.5 (5.0-8.0); UGLUCOSE NEGATIVE (NEGATIVE)
[2019-12-15 10:13] LABS: *CLARITY,URINE HAZY (CLEAR)
[2019-12-15 10:26] LABS: BACTERIA,URINE NONE SEEN /HPF (NONE SEEN); SQUAMOUS EPITHELIAL CELL,UR FEW /HPF (NONE SEEN); WBC,URINE 0-3 /HPF (0-3)
[2019-12-15] MEDS ORDERED: FUROSEMIDE 20 MG/2 ML VIAL IV ONE ×2 (10:30→15:00)
[2019-12-15] MEDS ORDERED: CEFTRIAXONE 1 G in IV DEXTROSE 5% 50 ML IV ONE (10:30)
--- NOTE | 2019-12-15 10:30 | NUR ---
Called [facility] in an attempt to find out last dose of Vancomycin and Rocephin. Spoke with Jamal who stated the pt was admitted to their facility on 12/12/19 but he can not find any records of the patient receiving the medications. Per pt's medication list pt has orders for Rocephin 1GM IV Q24hrs and Vancomycin 1gm IV Q24hrs ordered on 12/12/19. Dr. Rosa notified.
--- NOTE | 2019-12-15 10:35 | NUR ---
Telephone call placed to Dr. Zheng as requested by Dr. Rosa. Dr. Storm java developer consultant and will be paged per service.
[2019-12-15] MEDS ORDERED: CEFTRIAXONE 1 G VIAL ONE (10:44)
[2019-12-15] MEDS ORDERED: FUROSEMIDE 20 MG/2 ML VIAL ONE (10:44)
--- NOTE | 2019-12-15 11:10 | NUR ---
Dr. Rosa spoke with Dr. Storm via telephone, pt accepted for tele admission. Telephone orders for admission received from Dr. Storm via telephone. Attempted to call report to tele floor, admitting nurse to call back.
--- NOTE | 2019-12-15 11:20 | NUR ---
SBAR report given to LYNDSEY Cotton via telephone.
--- NOTE | 2019-12-15 11:40 | NUR ---
Pt trans to tele floor, NAD noted.
--- NOTE | 2019-12-15 11:50 | NUR ---
ADMITTED FROM ER A 79 YO MALE FROM ER WITH ADM DX OF CHF, CELLULITIS AWAKE ALERT AND ORIENTED X3 ON 3L NC SATURATING 96%. WITH SOB ON EXERTION. ROUTINE ADM ASSESSMENT INITIATED. SEEN BY DR RODRÍGUEZ DIGITAL PRODUCT MANAGER WITH ORDERS. NOTIFIED DR RUBIO FOR ADMISSION ORDERS AWAITING CALL BACK. AFIB ON MONITOR
[2019-12-15 11:58] VITALS: BP 100/61
[2019-12-15] MEDS: AZITHROMYCIN IV 500 MG in IV DEXTROSE 5% 250 ML IV SCH (14:13)
[2019-12-15] MEDS ORDERED: CEFTRIAXONE 1 G in IV DEXTROSE 5% 50 ML IV SCH (15:00)
[2019-12-15 15:10] VITALS: BP 117/53
[2019-12-15] MEDS ORDERED: APIXABAN 5 MG TABLET PO SCH (17:00)
[2019-12-15] MEDS: CARVEDILOL 12.5 MG TABLET PO SCH (18:20)
[2019-12-15] MEDS: APIXABAN 5 MG TABLET PO SCH (18:21)
--- NOTE | 2019-12-15 19:00 | NUR ---
Clinical pharmacy note:Vancomycin per pharmacy Subjective: To start Vancomycin dosing on this patient for pneumonia Objective: BUN 57 Scr 1.9 WBC 20.7 Temp 98.7(No HD yet) Ht 193.64cm Wt 165.56kg Assessment/Plan: Since renal function is unstable, will dose by level for now. Vancomycin 2500mg IVPB x1 will be given tonight. Rx will order next random after checking tomorrow labs. Will follow daily.
[2019-12-15] MEDS: CEFEPIME HCL 1 G in IV DEXTROSE 5% 50 ML IV SCH (19:58)
[2019-12-15 20:28] VITALS: BP 105/62
[2019-12-15] MEDS: AMLODIPINE 5 MG TABLET PO SCH (20:33)
[2019-12-15] MEDS: Z GUARD REMEDY PASTE 57 GM TUBE TOP SCH (20:33)
[2019-12-15] MEDS ORDERED: VANCOMYCIN IV 2,500 MG in IV DEXTROSE 5% 500 ML IV ONE (21:00)
[2019-12-15] MEDS: IPRATROPIUM BROMIDE 0.5 MG/2.5 ML NEBU NEB PRN (21:33)
[2019-12-15] MEDS: MELATONIN 3 MG TABLET PO PRN (22:01)
[2019-12-16] VITALS (7 sets, daily range): BP systolic 99–142; BP diastolic 54–85
[2019-12-16] MEDS: IPRATROPIUM BROMIDE 0.5 MG/2.5 ML NEBU NEB PRN ×3 (04:20→23:54)
[2019-12-16 06:35] LABS: BASOPHILS % (AUTO) 0.1 % (0.0-2.0); EOSINOPHILS # (AUTO) 0.3 K/uL (0.0-0.7); EOSINOPHILS % (AUTO) 1.4 % (0.0-7.0); HEMATOCRIT 32.3 % (36.7-47.1); HEMOGLOBIN 10.3 g/dL (12.5-16.3); LYMPHOCYTES # (AUTO) 3.7 K/uL (20.0-40.0); LYMPHOCYTES % (AUTO) 19.8 % (20.5-51.5); MEAN CORPUSCULAR HEMOGLOBIN 27.4 uug (23.8-33.4); MEAN CORPUSCULAR HGB CONC 32 g/dL (32.5-36.3); MEAN CORPUSCULAR VOLUME 86.1 fL (73.0-96.2); MONOCYTES # (AUTO) 1.3 K/uL (2.0-10.0); MONOCYTES % (AUTO) 6.8 % (0.0-11.0); NEUTROPHILS # (AUTO) 13.3 K/uL (1.8-8.9); NEUTROPHILS % (AUTO) 71.9 % (38.5-71.5); PLATELET COUNT (AUTO) 119 K/uL (152-348); RED BLOOD CELL COUNT(AUTO) 3.76 MIL/uL (4.06-5.63); WHITE BLOOD COUNT (AUTO) 18.6 K/uL (3.6-10.2)
[2019-12-16 06:55] LABS: CARBON DIOXIDE 28 mmol/L (21-32); CHLORIDE 104 mmol/L (98-107); CREATININE 1.8 mg/dL (0.6-1.3); GLUCOSE 116 mg/dL (74-106); MAGNESIUM 1.7 mg/dL (1.8-2.4); PHOSPHOROUS 3.1 mg/dL (2.5-4.9); POTASSIUM 4.7 mmol/L (3.5-5.1); UREA NITROGEN, BLOOD 55 mg/dL (7-18)
--- NOTE | 2019-12-16 08:00 | NUR ---
Plan of care with pt regarding fluid restrictions of 1000 in am shift. Discussed importance of not drinking too much fluids. PT agreeable with fluid restrictions. Noted swelling on LE's +3. Midline on Right arm intact and flushed without any resistance. PT on o2 @ 2 liters. f/u call made to central re: bariatric bed - to be delivered this afternoon. PT Sinus tach 120's coreg given.
[2019-12-16] MEDS: CEFEPIME HCL 1 G in IV DEXTROSE 5% 50 ML IV SCH ×2 (08:09→20:20)
[2019-12-16] MEDS: CITALOPRAM 20 MG TABLET PO SCH (08:10)
[2019-12-16] MEDS: CARVEDILOL 12.5 MG TABLET PO SCH ×2 (08:11→17:10)
[2019-12-16] MEDS: FUROSEMIDE 40 MG/4 ML VIAL IV SCH (08:11)
[2019-12-16] MEDS: AMLODIPINE 5 MG TABLET PO SCH ×2 (08:12→20:20)
[2019-12-16] MEDS: FOLIC ACID 1 MG TABLET PO SCH (08:12)
[2019-12-16] MEDS: Z GUARD REMEDY PASTE 57 GM TUBE TOP SCH ×2 (08:13→20:20)
[2019-12-16] MEDS: APIXABAN 5 MG TABLET PO SCH ×2 (08:14→17:23)
[2019-12-16 08:32] LABS: ABG BASE EXCESS -0.2 mmol/L; ABG PCO2 43.5 mmHg (35.0-45.0); ABG PH 7.378 (7.350-7.450); ABG SITE LEFT BRACHIAL; ABG TOTAL HEMOGLOBIN 11.2 G/dL (13.5-18.0); MetHb 0.1 % (0.0-1.5); O2Hb 94.3 % (94.0-97.0); VENT MODE Nasal Cannula
--- NOTE | 2019-12-16 09:25 | NUR ---
Clinical pharmacy note:Vancomycin per pharmacy Subjective: To continue Vancomycin dosing on this patient for pneumonia Objective: BUN 55 Scr 1.8 WBC 18.6 Temp 97.8 (No HD yet) Vanco random level on 12/16 with am labs: 35.8 (post Vancomycin 2500mg IVPB x1 on 12/15 at 2030). Ht 193.64cm Wt 165.56kg Assessment/Plan: Since renal function is unstable, will dose by level for now. Since vanco random level this am is above 20 mcg/ml, no dose shall be due today. Rx will order next random for tomorrow with am labs. Will follow daily.
[2019-12-16] MEDS ORDERED: MAGNESIUM OXIDE 400 MG TABLET PO ONE (10:45)
[2019-12-16] MEDS ORDERED: ACETAMINOPHEN 325 MG TABLET PO PRN (11:45)
[2019-12-16] MEDS: SEVELAMER CARBONATE 800 MG TABLET PO SCH ×2 (11:47→17:05)
--- NOTE | 2019-12-16 12:00 | NUR ---
Pt was not able to tolerate 1 lit pt was desaturating to 85% 02 sat . pt back to 2 liters oxygen and gave pt HHN tx by RT.
--- NOTE | 2019-12-16 13:00 | NUR ---
HHN tx effective. PT less sob. pt sat of 95% on 2 liters.
--- NOTE | 2019-12-16 14:30 | NUR ---
director investment banking AND Katelyn PRINCIPAL DEVELOPER HERE TO EVALUATE PTS WOUNDS ON LEGS,. FEET, AND BUTTOCKS. Awaiting dressing orders. Call light is within reach. Awaiting for bariatric bed.
[2019-12-16] MEDS: AZITHROMYCIN IV 500 MG in IV DEXTROSE 5% 250 ML IV SCH (14:43)
--- NOTE | 2019-12-16 16:00 | NUR ---
Bariatric bed here set up for patient with continuos bed turning q 15 mins. Pt orthopnic. Pt have a hard time to breath when laying down. pt on o2 at 2 liters to keep sat above 89%
[2019-12-16] MEDS: CLOTRIMAZOLE 1% CREAM 30 GM TUBE TOP SCH (17:10)
--- NOTE | 2019-12-16 17:30 | NUR ---
Pt's friend Jostin dodson (h) [phone], (C) [phone] at bedside with patient. Jostin Spoke with director social service secondary to pt has no family contact. Verified with patients wants regarding emergency situations. Pt states he wants everything done to keep him alive. PT is in no acute distress. Bariatric bed effective. pt states he is more comfortable with the bariatric bed with continuos turning q 15 mins. "my butt is less sore".
--- NOTE | 2019-12-16 18:08 | NUR ---
Pt had good output of 2300 with 500 in fluid sr. Pt comfortable in bed. Call light is within reach.
--- NOTE | 2019-12-16 20:00 | NUR ---
Received patient lying in bed. AAOx3. In no acute distress. Denies any pain or SOB. On O2 at 2LPM via NC in place. O2 sat at 94% at this time. HOB elevated. A. Flutter on tele at 87/min. Delvalle catheter intact and draining via gravity. Safety measure initiated and call wheat within reached. Continue to monitor.
[2019-12-16] MEDS: ATORVASTATIN 40 MG TABLET PO SCH (20:20)
[2019-12-16] MEDS ORDERED: AMIODARONE HCL 200 MG TABLET PO SCH (21:00)
[2019-12-16] MEDS: MELATONIN 3 MG TABLET PO PRN (21:22)
[2019-12-16] MEDS ORDERED: FUROSEMIDE 40 MG/4 ML VIAL IV ONE (23:30)
--- NOTE | 2019-12-16 23:30 | NUR ---
Patient complaining of SOB in spite of having O2 saturation of 94-96% on O2 at 2LPM via NC. Informed Dr. De Souza and ordered one time dose of Lasix 40mg IV. Order read back and verified. Will carry out order.
--- NOTE | 2019-12-16 23:41 | NUR ---
Called Alida to also provide breathing treatment.
[2019-12-17] VITALS (7 sets, daily range): BP systolic 114–149; BP diastolic 51–76
--- NOTE | 2019-12-17 | NUR ---
Patient asleep at this time. In no acute distress. Breathing even and non labored. O2 at 2LPM via NC in place. O2 sat at 94% at this time.
--- NOTE | 2019-12-17 06:11 | NUR ---
AAOx3. In no acute distress. Denies any pain or SOB. On O2 at 2LPM via NC in place. O2 sat at 94% at this time. HOB elevated. A. Flutter on tele at 87/min. with occasional V pacing. Midline on right upper arm intact and patent. No adverse effect noted from IV ABX. Delvalle catheter intact and draining via gravity. Needs attended to and met. Safety measure maintained and call wheat within reached.
[2019-12-17 06:54] LABS: BASOPHILS % (AUTO) 0.3 % (0.0-2.0); EOSINOPHILS # (AUTO) 0.3 K/uL (0.0-0.7); EOSINOPHILS % (AUTO) 1.3 % (0.0-7.0); HEMATOCRIT 30.8 % (36.7-47.1); HEMOGLOBIN 9.6 g/dL (12.5-16.3); LYMPHOCYTES # (AUTO) 3.9 K/uL (20.0-40.0); MEAN CORPUSCULAR HEMOGLOBIN 26.9 uug (23.8-33.4); MEAN CORPUSCULAR HGB CONC 31 g/dL (32.5-36.3); MEAN CORPUSCULAR VOLUME 85.9 fL (73.0-96.2); MONOCYTES # (AUTO) 1.1 K/uL (2.0-10.0); MONOCYTES % (AUTO) 5.6 % (0.0-11.0); NEUTROPHILS # (AUTO) 14.3 K/uL (1.8-8.9); NEUTROPHILS % (AUTO) 72.8 % (38.5-71.5); PLATELET COUNT (AUTO) 125 K/uL (152-348); RED BLOOD CELL COUNT(AUTO) 3.58 MIL/uL (4.06-5.63); WHITE BLOOD COUNT (AUTO) 19.6 K/uL (3.6-10.2)
[2019-12-17 07:14] LABS: ALANINE AMINOTRANSFERASE 23 U/L (16-63); ALKALINE PHOSPHATASE 48 U/L (50-136); ASPARTATE AMINOTRANSFERASE 9 U/L (15-37); CARBON DIOXIDE 32 mmol/L (21-32); CHLORIDE 106 mmol/L (98-107); CREATINE KINASE, TOTAL 21 U/L (39-308); CREATININE 1.7 mg/dL (0.6-1.3); GLUCOSE 126 mg/dL (74-106); MAGNESIUM 1.8 mg/dL (1.8-2.4); PHOSPHOROUS 2.9 mg/dL (2.5-4.9); POTASSIUM 4.5 mmol/L (3.5-5.1); TOTAL PROTEIN, SERUM 5.6 g/dL (6.4-8.2); UREA NITROGEN, BLOOD 58 mg/dL (7-18); VANCOMYCIN,RANDOM 23.7 ug/mL (18.0-26.0)
--- NOTE | 2019-12-17 08:00 | NUR ---
Reinforce fluid restrictions with patient. Pt agreeable with plan. pt on cont pulse ox currently @94%on 2 liters. Bariatric bed on continous bed rotation side to side at q 15 mins. f/c draining clear yellow urine. Tele SNR. @70's. Call light is within reach.
[2019-12-17] MEDS: CITALOPRAM 20 MG TABLET PO SCH (08:49)
[2019-12-17] MEDS: SEVELAMER CARBONATE 800 MG TABLET PO SCH (08:49)
[2019-12-17] MEDS: AMLODIPINE 5 MG TABLET PO SCH ×2 (08:50→20:22)
[2019-12-17] MEDS: CARVEDILOL 12.5 MG TABLET PO SCH ×2 (08:50→17:36)
[2019-12-17] MEDS: AMIODARONE HCL 200 MG TABLET PO SCH ×2 (08:50→20:21)
[2019-12-17] MEDS: FOLIC ACID 1 MG TABLET PO SCH (08:50)
[2019-12-17] MEDS: FUROSEMIDE 40 MG/4 ML VIAL IV SCH (08:51)
[2019-12-17] MEDS: CEFEPIME HCL 1 G in IV DEXTROSE 5% 50 ML IV SCH ×2 (08:52→17:36)
[2019-12-17] MEDS: APIXABAN 5 MG TABLET PO SCH ×2 (09:01→17:37)
[2019-12-17] MEDS: CLOTRIMAZOLE 1% CREAM 30 GM TUBE TOP SCH ×2 (09:01→17:36)
[2019-12-17] MEDS: Z GUARD REMEDY PASTE 57 GM TUBE TOP SCH ×2 (09:01→20:22)
--- NOTE | 2019-12-17 09:40 | NUR ---
Clinical pharmacy note:Vancomycin per pharmacy Subjective: To continue Vancomycin dosing on this patient for pneumonia Objective: BUN 50 Scr 1.7 WBC 19.6 Temp 98 (No HD yet) Vanco random level on 12/16 with am labs: 35.8 (post Vancomycin 2500mg IVPB x1 on 12/15 at 2030). Vanco random level on 12/17 with am labs: 23.7 Ht 193.64cm Wt 165.56kg Assessment/Plan: Since renal function is unstable, will dose by level for now. Since vanco random level this am is above 20 mcg/ml, no dose shall be due today. But it is expected for vanco random level tomorrow to be around 15 mcg/ml, will give a dose of vanco 2000 mg IVPB x1 tomorrow at 0800 Rx will review the labs on 12/19 & order next random when appropriate for further dosing. Will follow daily.
--- NOTE | 2019-12-17 10:00 | NUR ---
Dr cespedes here to see patient. Notified unsuccessful titration to o2 to 1 liter via n/c yesterday.
[2019-12-17] MEDS: IPRATROPIUM BROMIDE 0.5 MG/2.5 ML NEBU NEB PRN ×3 (13:57→23:36)
--- NOTE | 2019-12-17 18:30 | NUR ---
Dressing changed as ordered. Wounds on right leg has granulation noted. no drainage noted. colored light red wound.
[2019-12-17] MEDS: MELATONIN 3 MG TABLET PO PRN (20:21)
[2019-12-17] MEDS: ATORVASTATIN 40 MG TABLET PO SCH (20:22)
[2019-12-18] VITALS (7 sets, daily range): BP systolic 97–135; BP diastolic 53–73
[2019-12-18] MEDS: CEFEPIME HCL 1 G in IV DEXTROSE 5% 50 ML IV SCH ×3 (01:06→17:07)
[2019-12-18 06:23] LABS: BASOPHILS % (AUTO) 0.3 % (0.0-2.0); EOSINOPHILS # (AUTO) 0.4 K/uL (0.0-0.7); EOSINOPHILS % (AUTO) 2.3 % (0.0-7.0); HEMATOCRIT 27.6 % (36.7-47.1); HEMOGLOBIN 8.6 g/dL (12.5-16.3); LYMPHOCYTES # (AUTO) 3.1 K/uL (20.0-40.0); LYMPHOCYTES % (AUTO) 18.1 % (20.5-51.5); MEAN CORPUSCULAR HGB CONC 31 g/dL (32.5-36.3); MEAN CORPUSCULAR VOLUME 86.4 fL (73.0-96.2); MONOCYTES # (AUTO) 0.9 K/uL (2.0-10.0); MONOCYTES % (AUTO) 5.5 % (0.0-11.0); NEUTROPHILS # (AUTO) 12.8 K/uL (1.8-8.9); NEUTROPHILS % (AUTO) 73.8 % (38.5-71.5); PLATELET COUNT (AUTO) 115 K/uL (152-348); RED BLOOD CELL COUNT(AUTO) 3.19 MIL/uL (4.06-5.63); WHITE BLOOD COUNT (AUTO) 17.3 K/uL (3.6-10.2)
[2019-12-18 06:47] LABS: ALANINE AMINOTRANSFERASE 22 U/L (16-63); ALKALINE PHOSPHATASE 44 U/L (50-136); ASPARTATE AMINOTRANSFERASE 15 U/L (15-37); BILIRUBIN,TOTAL 1.3 mg/dL (0.2-1.0); CARBON DIOXIDE 33 mmol/L (21-32); CHLORIDE 108 mmol/L (98-107); CREATININE 1.6 mg/dL (0.6-1.3); GLUCOSE 120 mg/dL (74-106); MAGNESIUM 1.8 mg/dL (1.8-2.4); PHOSPHOROUS 2.4 mg/dL (2.5-4.9); POTASSIUM 4.3 mmol/L (3.5-5.1); TOTAL PROTEIN, SERUM 5.2 g/dL (6.4-8.2); UREA NITROGEN, BLOOD 57 mg/dL (7-18)
[2019-12-18 07:09] LABS: *BILIRUBIN,URIN NEGATIVE (NEGATIVE); *BLOOD, URINE NEGATIVE (NEGATIVE); *CLARITY,URINE SLIGHTLY CLOUDY (CLEAR); *COLOR,URINE YELLOW (YELLOW); *KETONES,URINE NEGATIVE (NEGATIVE); *UROBILINOGEN,URINE 0.2 E.U./dl (NORMAL); LEUKOCYTE ESTERASE ,URINE NEGATIVE (NEGATIVE); NITRITE, URINE NEGATIVE (NEGATIVE); UGLUCOSE NEGATIVE (NEGATIVE)
--- NOTE | 2019-12-18 07:19 | NUR ---
PT RESTED WELL IN BETWEEN CARE; SLEPT WELL AND TOLERATED CPAP OVERNIGHT; WOUND DRESSING DONE AND PHOTOS IN CHART; ASSISTED WITH NEEDS; DR PHELPS IS HERE TO SEE PT; ENDORSED TO NURSE COHEN.
[2019-12-18 07:36] LABS: *CREATININE,URINE 56.3 mg/dL (30-125); *URINE TOTAL PROTEIN RANDOM 42.1 mg/dL (<150/24HR)
[2019-12-18] MEDS ORDERED: VANCOMYCIN IV 2,000 MG in IV DEXTROSE 5% 500 ML IV ONE (08:00)
--- NOTE | 2019-12-18 08:00 | NUR ---
RECIEVED PATIENT ON A C-PAP 07/17 TOLERATING FAIRLY WELL, DENIES ANY PAIN OR DISTRESS, REMAINS AFIB FLUTTER ON MONITOR.. CONTINUE WITH TIEN STATUS.
[2019-12-18] MEDS: FUROSEMIDE 40 MG/4 ML VIAL IV SCH (08:41)
[2019-12-18] MEDS: AMIODARONE HCL 200 MG TABLET PO SCH ×2 (08:41→20:14)
[2019-12-18] MEDS: FOLIC ACID 1 MG TABLET PO SCH (08:42)
[2019-12-18] MEDS: CARVEDILOL 12.5 MG TABLET PO SCH ×2 (08:42→17:09)
[2019-12-18] MEDS: AMLODIPINE 5 MG TABLET PO SCH ×2 (08:42→20:15)
[2019-12-18] MEDS: CITALOPRAM 20 MG TABLET PO SCH (08:42)
[2019-12-18] MEDS: CLOTRIMAZOLE 1% CREAM 30 GM TUBE TOP SCH ×2 (08:43→17:09)
[2019-12-18] MEDS: Z GUARD REMEDY PASTE 57 GM TUBE TOP SCH ×2 (08:44→20:57)
[2019-12-18] MEDS: APIXABAN 5 MG TABLET PO SCH ×2 (08:47→17:11)
[2019-12-18 09:08] LABS: BACTERIA,URINE FEW /HPF (NONE SEEN); RBC,URINE NONE SEEN /HPF (0-3); SQUAMOUS EPITHELIAL CELL,UR FEW /HPF (NONE SEEN); TRIPLE PHOSPHATE CRYSTAL,UR MODERATE /HPF (NONE SEEN); WBC,URINE 0-3 /HPF (0-3)
--- NOTE | 2019-12-18 09:32 | NUR ---
Clinical pharmacy note:Vancomycin per pharmacy Subjective: To continue Vancomycin dosing on this patient for pneumonia Objective: BUN 57 Scr 1.6 WBC 17.3 Temp 98 (No HD yet) Vanco random level on 12/16 with am labs: 35.8 (post Vancomycin 2500mg IVPB x1 on 12/15 at 2030). Vanco random level on 12/17 with am labs: 23.7 Ht 193.64cm Wt 165.56kg Assessment/Plan: Since renal function is unstable, will dose by level for now. Since expected vanco random level this am is around 15 mcg/ml, will give a dose of vanco 2000 mg IVPB x1 today at 0900 Rx will review the labs on 12/19 & order next random when appropriate for further dosing. Will follow daily.
--- NOTE | 2019-12-18 11:00 | NUR ---
SEEN BY RADAR SIGNAL PROCESSING ENGINEER FOR FOLLOW-UP NO NEW ORDERS
--- NOTE | 2019-12-18 12:38 | NUR ---
WOUND CARE CONSULT: PT FOLLOWED BY SURGICAL TEAMS FOR WOUNDS. DEFER TO SURGICAL TEAMS FOR WOUND TREATMENT PLAN. WILL SEE PRN. DISCUSSED SKIN PROTECTION WITH NURSING STAFF. PT ON [facility] AIR BED.
--- NOTE | 2019-12-18 15:46 | NUR ---
PATIENT TOLERATING C-PAP AT 07/17 SATURATING 100%. PATIENT RESTING COMFORTABLY WITHOUT ANY DISTRESS
[2019-12-18] MEDS ORDERED: NEUTRA PHOS PACKET PO ONE (16:15)
--- NOTE | 2019-12-18 20:00 | NUR ---
Received patient lying in bed. AAOx3. In no acute distress. Denies any pain. CIPAP in place at 07/17. O2 sat at 97% at this time. HOB elevated. A. Flutter on tele at 83/min. Delvalle catheter intact and draining via gravity. Both heel floated with pillows. Safety measure initiated and call wheat within reached. Continue to monitor.
[2019-12-18] MEDS: ATORVASTATIN 40 MG TABLET PO SCH (20:14)
[2019-12-19] VITALS: BP 105/54
[2019-12-19] MEDS: CEFEPIME HCL 1 G in IV DEXTROSE 5% 50 ML IV SCH ×3 (00:15→15:52)
[2019-12-19] MEDS: MELATONIN 3 MG TABLET PO PRN (00:19)
[2019-12-19 04:00] VITALS: BP 131/56
--- NOTE | 2019-12-19 05:56 | NUR ---
AAOx3. In no acute distress. Denies any pain. CIPAP in place at 07/17. O2 sat at 98%. HOB kept elevated. A. Flutter on tele at 98/min with frequent PVC's. Right upper arm midline intact and patent. No adverse reaction noted from IV ABX. Delvalle catheter remains intact and draining via gravity. Needs attended to and met. Safety measure maintained and call wheat within reached.
[2019-12-19 06:36] LABS: BASOPHILS % (AUTO) 0.2 % (0.0-2.0); EOSINOPHILS # (AUTO) 0.5 K/uL (0.0-0.7); EOSINOPHILS % (AUTO) 2.6 % (0.0-7.0); HEMATOCRIT 25.4 % (36.7-47.1); HEMOGLOBIN 8.2 g/dL (12.5-16.3); LYMPHOCYTES # (AUTO) 3.4 K/uL (20.0-40.0); LYMPHOCYTES % (AUTO) 18.8 % (20.5-51.5); MEAN CORPUSCULAR HEMOGLOBIN 27.8 uug (23.8-33.4); MEAN CORPUSCULAR HGB CONC 32 g/dL (32.5-36.3); MEAN CORPUSCULAR VOLUME 86.5 fL (73.0-96.2); MONOCYTES % (AUTO) 5.5 % (0.0-11.0); NEUTROPHILS # (AUTO) 13.1 K/uL (1.8-8.9); NEUTROPHILS % (AUTO) 72.9 % (38.5-71.5); PLATELET COUNT (AUTO) 141 K/uL (152-348); RED BLOOD CELL COUNT(AUTO) 2.93 MIL/uL (4.06-5.63)
[2019-12-19 06:49] LABS: CARBON DIOXIDE 36 mmol/L (21-32); CHLORIDE 109 mmol/L (98-107); CREATININE 1.6 mg/dL (0.6-1.3); GLUCOSE 106 mg/dL (74-106); MAGNESIUM 1.9 mg/dL (1.8-2.4); PHOSPHOROUS 2.2 mg/dL (2.5-4.9); POTASSIUM 4.6 mmol/L (3.5-5.1); UREA NITROGEN, BLOOD 61 mg/dL (7-18)
[2019-12-19] MEDS ORDERED: FURO20TA4 PO (07:02)
[2019-12-19] MEDS ORDERED: CEFE1FRO IV (07:02)
[2019-12-19] MEDS ORDERED: RXVAN XX (07:02)
[2019-12-19 07:07] LABS: ALBUMIN 2.5 g/dL (2.9-4.4); ALPHA-1-GLOBULIN 0.5 g/dL (0.0-0.4); ALPHA-2-GLOBULIN 0.9 g/dL (0.4-1.0); BETA GLOBULIN 0.8 g/dL (0.7-1.3); GAMMA GLOBULIN 0.5 g/dL (0.4-1.8); GLOBULIN, TOTAL 2.6 g/dL (2.2-3.9); M-SPIKE Not Observed g/dL (Not Observed)
--- NOTE | 2019-12-19 07:27 | NUR ---
SEEN BY DR PHELPS NOTED LABS AND PLAN DC TODAY. PATIENT STILL ON CPAP AT 07/17 SATURATING 97-98%. FIB FLUTTER ON MONITOR. DENIES PAIN OR DISTRESS
[2019-12-19 07:47] VITALS: BP 132/76
[2019-12-19] MEDS: FOLIC ACID 1 MG TABLET PO SCH (08:45)
[2019-12-19] MEDS: FUROSEMIDE 40 MG/4 ML VIAL IV SCH (08:45)
[2019-12-19] MEDS: NEUTRA PHOS PACKET PO SCH ×3 (08:45→15:36)
[2019-12-19] MEDS: AMLODIPINE 5 MG TABLET PO SCH (08:46)
[2019-12-19] MEDS: AMIODARONE HCL 200 MG TABLET PO SCH (08:46)
[2019-12-19] MEDS: CLOTRIMAZOLE 1% CREAM 30 GM TUBE TOP SCH ×2 (08:47→15:39)
[2019-12-19] MEDS: CITALOPRAM 20 MG TABLET PO SCH (08:47)
[2019-12-19] MEDS: Z GUARD REMEDY PASTE 57 GM TUBE TOP SCH (08:48)
[2019-12-19] MEDS: CARVEDILOL 12.5 MG TABLET PO SCH (08:53)
[2019-12-19] MEDS: APIXABAN 5 MG TABLET PO SCH ×2 (08:54→15:52)
[2019-12-19 09:55] LABS: ABG BASE EXCESS 7.9 mmol/L; ABG HCO3 34.8 mmol/L; ABG PCO2 64.4 mmHg (35.0-45.0); ABG PO2 175.4 mmHg (75.0-100.0); ABG SITE RIGHT RADIAL; ABG TOTAL HEMOGLOBIN 8.6 G/dL (13.5-18.0); COHb 2.8 % (0.5-1.5); MetHb 0.4 % (0.0-1.5); O2Hb 96.2 % (94.0-97.0); VENT MODE Nasal Cannula
[2019-12-19 11:10] VITALS: BP 104/62
--- NOTE | 2019-12-19 11:55 | NUR ---
Clinical pharmacy note:Vancomycin per pharmacy Subjective: To continue Vancomycin dosing on this patient for pneumonia Objective: BUN 61 Scr 1.6 WBC 18.3 Temp 98.4 (No HD yet) Vanco random level on 12/16 with am labs: 35.8 (post Vancomycin 2500mg IVPB x1 on 12/15 at 2030). Vanco random level on 12/17 with am labs: 23.7 Ht 193.64cm Wt 165.56kg Assessment/Plan: Since renal function is unstable, will dose by level for now. Vancomycin 2000mg IV x1 was given yesterday in the morning. No dose will be given today. Will order level for tomorrow am with am labs for further dosing.
--- NOTE | 2019-12-19 12:00 | NUR ---
RT CALLED TO ROOM. PER PT REQUEST CPAP PLACED BACK ON FOR SOB. INCREASED WORK OF BREATHING EVIDENT. PT RESPONDED WELL TO CPAP AFTER A COUPLE MINUTES. SPO2 97% WITH NO RESP DISTRESS
--- NOTE | 2019-12-19 13:00 | NUR ---
tolerating 2l o2 via nc saturating 100%. for discharge to snf. case management aware
[2019-12-19] MEDS ORDERED: BISACODYL 10 MG SUPP.RECT RC ONE (15:00)
[2019-12-19 15:20] VITALS: BP 106/61
--- NOTE | 2019-12-19 16:44 | NUR ---
DISCAHRGE TO [facility] VIA AMBULANCE STABLE WITH 2L NC
--- NOTE | 2019-12-19 16:45 | NUR ---
REPORT GIVEN TO [place] AT [facility]
== END 2019-12-19 16:45 | DRG 871 ==
LOC: ER 09:09 → TELE3 11:26 → TELE-TD3 12:57
PROVIDERS: ADMIT Internal Medicine Nephrology; ATTEND Internal Medicine
PROC: 5A09357 Assistance with Respiratory Ventilation, Less than 24 Consecutive Hours, Continuous Positive Airway Pressure (ICD-10-PCS; principal; 2019-12-17)
DX: A41.9 Sepsis, unspecified organism (principal); I50.43 Acute on chronic combined systolic (congestive) and diastolic (congestive) heart failure; R53.2 Functional quadriplegia; J96.92 Respiratory failure, unspecified with hypercapnia; I13.0 Hypertensive heart and chronic kidney disease with heart failure and stage 1 through stage 4 chronic kidney disease, or unspecified chronic kidney disease; L03.116 Cellulitis of left lower limb; L03.115 Cellulitis of right lower limb; I48.92 Unspecified atrial flutter; N39.0 Urinary tract infection, site not specified; N25.81 Secondary hyperparathyroidism of renal origin; I42.9 Cardiomyopathy, unspecified; S80.822A Blister (nonthermal), left lower leg, initial encounter; S80.821A Blister (nonthermal), right lower leg, initial encounter; B95.2 Enterococcus as the cause of diseases classified elsewhere; B96.4 Proteus (mirabilis) (morganii) as the cause of diseases classified elsewhere; X58.XXXA Exposure to other specified factors, initial encounter; Y92.89 Other specified places as the place of occurrence of the external cause; E66.01 Morbid (severe) obesity due to excess calories; G47.33 Obstructive sleep apnea (adult) (pediatric); I48.0 Paroxysmal atrial fibrillation; Z95.810 Presence of automatic (implantable) cardiac defibrillator; Z88.0 Allergy status to penicillin; G89.29 Other chronic pain; E11.22 Type 2 diabetes mellitus with diabetic chronic kidney disease; N18.9 Chronic kidney disease, unspecified; N40.0 Benign prostatic hyperplasia without lower urinary tract symptoms; I87.2 Venous insufficiency (chronic) (peripheral); I25.2 Old myocardial infarction; I49.3 Ventricular premature depolarization; Z79.01 Long term (current) use of anticoagulants; Z82.49 Family history of ischemic heart disease and other diseases of the circulatory system; D64.9 Anemia, unspecified; D69.6 Thrombocytopenia, unspecified; I25.10 Atherosclerotic heart disease of native coronary artery without angina pectoris
CPT/HCPCS: 36415; 36600; 70030-TC; 71045; 76604; 76770; 83735; 83970; 84100; 84155; 84156; 84165; 84300; 84443; 85025; 85730; 87040; 87086; 87400; 93005; 94640; 94660; 94664; 94762; A4217; A4663; G0378; J0456; J0692; J0696; J1940; J3370; J3490; J3590; J7050; J7060